=== PATIENT | female | born 1960 | race Caucasian/White ===

== ENCOUNTER 2016-09-11 06:33 | Outpatient (CLI) | payer OTHER ==
[~2016-09-11] VITALS: Ht 157.5 cm; Wt 90.5 kg
[~2016-09-11 06:33] MED LIST: GLUCOPHAGE500 MG PO; GLUCOTROL 5 MG T5 MG PO
[2016-09-11] MEDS ORDERED: PRAVACHOL20 MG PO (07:12)
[2016-09-11 07:22] VITALS: BP 159/72; Ht 157.5 cm; Wt 90.5 kg
--- NOTE | 2016-09-11 07:42 | NUR ---
#22 GUAGE IV STARTED IN RIGHT HAND AFTER SECOND ATTEMPT.
--- NOTE | 2016-09-11 12:23 | NUR ---
1000 IV DC WITH CATHER TIP INTACT
== END 2016-09-11 10:15 | disposition home or self-care (01) ==
LOC: D.OPS 06:33
DX: D69.6 Thrombocytopenia, unspecified (principal); D72.819 Decreased white blood cell count, unspecified; E11.9 Type 2 diabetes mellitus without complications; E78.5 Hyperlipidemia, unspecified

== ENCOUNTER → 2017-03-04 16:55 | Outpatient (CLI) | payer OTHER ==
[2016-09-11 07:22] VITALS: BMI 36.5
[~2017-03-04 16:55] MED LIST changes: +PRAVACHOL20 MG PO
== END | disposition home or self-care (01) ==
LOC: D.MAMMO 13:30
DX: R92.2 Inconclusive mammogram (principal)

== ENCOUNTER 2018-02-15 18:59 | Inpatient (IN) | payer OTHER ==
[~2018-02-15] VITALS: Ht 157.5 cm; Wt 67.3 kg
--- NOTE | ~2018-02-15 | HEMODYNAMI ---
PATIENT:KYLEE TREVINO MEDICAL RECORD: [id number] : 60 [facility] [id number] ADMISSION DATE: 02/16/18 Generatedon:02/21/20189:15 Patient name: KYLEE TREVINO Patient #: [id number] SSN: : 1960 Date of study: 02/21/2018 Page: Of Hemodynamic Procedure Report Patient Data Patient Demographics Procedure consent was obtained First Name: KYLEE Gender: Female Last Name: URIEL : 1960 Middle Initial: ERYES Age: 57 year(s) Patient #: [id number] Race: Unknown Additional ID: [id number] Contact details Address: [address] [place] [address] State: [place] City: [place] Zip code: [address] Past Medical History Allergies: No known allergies Admission Admission Data Admission Date: 02/16/2018 Admission Time: 1:07 Room #: D.2123 Height (in.): 62 BSA: 1.71 (m2) Height (cm.): 157.48 BMI: 28.17 (kg/m2) Weight (lbs.): 154 Weight (kg.): 69.85 Procedure Procedure Types Cath Procedure Peripheral Cath Diagnostic Procedure Miscellaneous Procedure Description Procedure Date Procedure Date: 02/21/2018 Procedure Start Time: 8:37 Procedure Staff Name Function Linda Munoz RT Reconciliation Analyst Vamshi Koch MD Performing Physician Amanda Jimenez RN Nurse Emma Benton RN Nurse Procedure Medications Medication Administration Route Dosage Lidocaine 1% added to field 20 Hemodynamics Rest BSA: 1.71 (m2) O2 Consumption: Estimated: 232.56 (ml/min) O2 Consumption indexed : Estimated:136 (ml/min/m) Snapshots Pre Cath Intra NCS Post Cath Vital Signs Time Heart Resp SPO2 etCO2 NIBP (mmHg) Rhythm Pain Sedation Rate (ipm) (%) (mmHg) Status Level (bpm) 8:25:45 93 30 100 0 133/84(107) NSR 0 (11) 10(A) , No pain 8:29:59 98 32 100 0 130/82(98) NSR 0 (11) 10(A) , No pain 8:34:12 98 30 100 0 125/81(104) NSR 0 (11) 10(A) , No pain 8:38:22 96 33 100 0 131/85(105) NSR 0 (11) 10(A) , No pain 8:42:32 98 28 99 0 120/80(105) NSR 0 (11) 10(A) , No pain 8:46:42 98 28 99 0 120/79(105) NSR 0 (11) 10(A) , No pain 8:50:52 98 29 98 0 123/76(96) NSR 0 (11) 10(A) , No pain 8:55:02 90 15 98 0 112/76(90) NSR 0 (11) 10(A) , No pain 8:59:12 86 15 98 0 106/66(88) NSR 0 (11) 10(A) , No pain 9:04:11 93 22 99 0 120/75(97) NSR 0 (11) 10(A) , No pain 9:08:21 93 18 100 0 121/75(101) NSR 0 (11) 10(A) , No pain 9:12:35 96 30 100 0 121/73(93) NSR 0 (11) 10(A) , No pain Medications Time Medication Route Dose Verified Delivered Reason Notes Effectivene ss by by 8:36:16 Lidocaine added 20ml Vamshi Bonds used for 1% to vial August Koch procedure field MD HALL Procedure Log Time Note 8:17:55 Patient Height : 62 inches 8:18:04 Patient Weight : 154 lbs 8:18:08 Time tracking: Regular hours (M-F 7:00 - 5:00) 8:18:50 Patient received from [employer] to IR Alert and oriented. Tansferred to table in Supine position. 8:18:55 Signed procedure consent form obtained from patient. 8:19:02 H&P Date Dictated: 02/21/2018 Emergent; H&P N/A. 8:19:10 Pre-op teaching completed and patient verbalized understanding. 8:19:10 Pre-procedure instructions explained to patient. 8:19:25 Family unavailable. 8::28 Patient NPO since Midnight. 8:19:38 Patient allergic to No known allergies 8:20:27 8:: ----Pre-sedation anethsthesia assessment.---- 8:20:32 Previous problem with sedation/anesthesia? No ? 8:21:35 Snore? No 8:21:40 Sleep apnea? No 8:21:42 Deviated septum? No 8:21:44 Opens mouth fully? Yes 8:21:46 Sticks out tongue? Yes 8:21:55 Airway obstruction? No but has CHF 8:22:01 Dentures? No ? 8:22:06 Patient diabetic? No. 8::22 IV patent on arrival in right wrist with D5/.45%NaCl at [facility]. 8:22:33 Right abdomen area was prepped with chlora-prep and draped in sterile fashion 8:22:35 8:24:39 ECG and BP/O2 sat monitors applied to patient. 8:24:41 Vital chart was started 8:24:42 Baseline sample Acquired. 8:24:44 Full Disclosure recording started 8:24:45 8:35:53 Physician arrived 8:36:16 Lidocaine 1% 20ml vial added to field was administered by Vamshi Koch MD; used for procedure; 8:36:24 --------ALL STOP TIME OUT------ 8:36:25 Final Timeout: patient, procedure, and site verified with staff and physician. All members of the team are in agreement. 8:37:13 Procedure started. 8:37:34 Local anesthetic to Abdominal area with Lidocaine 1% by Vamshi Koch MD.INITIAL ACCESS ONLY 9:10:49 [id number] 8FR CATH DRAIN TRAY opened to sterile field. 9:10:56 Tegaderm 4 x 4 (1626W) opened to sterile field. 9:11:11 7.5 LITERS DRAINED FROM ABDOMEN 9:12:18 Procedure ended.(Physican Out) 9:13:01 Full Disclosure recording stopped 9:14:38 Procedure and supply charges have been captured, reviewed, submitted and are correct. Device Usage Item Name Manufacture Quantity Catalog Hospital Part Current Minimal Lot# / Number Charge Number Stock Stock Serial# Code [id number] CareFusion 1 [id number] 5 8FR CATH DRAIN TRAY Tegaderm 4 x 4 3M 1 [id number] (1626W) Signature Audit Lester Stage Time Signature Unsigned Intra-Procedure 02/21/2018 Linda Munoz 9:14:52 AM RT(R) [facility] [address] [place] [address]
--- NOTE | ~2018-02-15 | EC ---
PATIENT:KYLEE TREVINO DATE OF SERVICE: 02/16/18 SEX: F MEDICAL RECORD: [id number] DATE OF : 60 LOCATION:D. D.212 AGE OF PATIENT: 57 ADMISSION DATE: 02/16/18 REFERRING PHYSICIAN: INTERPRETING PHYSICIAN: ZAINAB CHANEY MD ECHOCARDIOGRAM REPORT ECHO CHARGES 4 ECHO COMPLETE Date: 02/16 CLINICAL DIAGNOSIS: CHF ECHOCARDIOGRAPHIC MEASUREMENTS (adult normal given) AC root (d.<3.7cm) 3.2 cm LV Septum d (<1.2 cm> 1.2 cm Valve Excursion 2.0 cm LV Septum (systole) 1.6 cm Left Atria (s.<4.0cm> 3.9 cm LVPW d(<1.2cm) 1.2 cm RV (d.<2.3cm) 2.4 cm LVPW (sytole) 2.0 cm LV diastole(<5.6CM) 5.6 cm MV E-F(>70mm/sec) cm LV systole 3.1 cm LVOT Diameter 1.7 cm MV exc.(>10mm) cm Est.ejection fraction (50-75%) % DOPPLER: LVIT cm/sec A 124 cm/sec E 96.0 cm/sec LA cm/sec RVSP 38.0 mmHg LVOT 126 cm/sec AOP1/2T m/s Asc. Ao 168 cm/sec RVOT 68.0 cm/sec RA cm/sec PA 110 cm/sec AV Gradient Peak 11.3 mmHg AV Mean 4.7 mmHg AV Area 2.1 cm MV Gradient Peak 7.2 mmHg MV Mean 3.3 mmHg MV Area cm COMMENTS: Nutrition Internship: [employer] Visitor: 1 Dr. Chaney TAPE# PACS Pericardial Effusion N DATE OF SERVICE: 02/17/2018 PROCEDURE: Echocardiogram. FINDINGS: 1. Left ventricular chamber size is within normal limits. Left ventricular systolic function is normal. Overall ejection fraction estimated at 60%. 2. Left atrium, right atrium, and right ventricle chamber sizes are within normal limits. 3. Valvular structures have normal structure and motion. ECHOCARDIOGRAM REPORT [id number] KYLEE TREVINO 4. Doppler interrogation reveals mild mitral regurgitation, mild tricuspid regurgitation, no other valvular insufficiency or stenosis. 5. No evidence of pericardial effusion or left ventricular thrombus. TRANSINT:[id number] Voice Confirmation ID: [id number] DOCUMENT ID: [id number] ZAINAB CHANEY MD at 1325 CC: [id number] DICTATION DATE: 02/18/18 1054 SCIENTIFIC INFORMATICS ANALYST: 02/18/18 1125 DIS IN 02/22/18 [place] [id number] [place] [id number]
[2018-02-15] MEDS ORDERED: FUROSEMIDE40 MG PO (19:07)
[2018-02-15] MEDS ORDERED: ZESTORETIC 10/11 TAB PO (19:08)
[2018-02-15] MEDS ORDERED: K-DUR20 MEQ PO (19:09)
[2018-02-15 19:40] LABS: BASOPHILS 0.4 % (0-2); EOSINOPHILS 1.8 % (0-7); HEMATOCRIT 32.7 % (36.0-48.0); HEMOGLOBIN 11.2 g/dL (12-16); LYMPHOCYTES 13.4 % (15-50); MCH 31.7 pg (26.0-34.0); MCHC 34.3 g/dL (31.0-37.0); MCV 92.6 fL (80.0-100.0); MEAN PLATELET VOLUME 9.5 fL (7.4-10.4); MONOCYTES 8.8 % (2-11); NEUTROPHILS 75.6 % (40-80); RBC 3.53 10x6/uL (4.00-5.40); RDW 15.4 % (11.5-14.5); WBC 5.5 10x3/uL (4.8-10.8)
[2018-02-15 19:53] LABS: APTT 30.5 SECONDS (22.8-39.4); INR 1.39 (0.85-1.17); PROTIME 16.6 SECONDS (11.6-15.0)
[2018-02-15 19:58] LABS: ALBUMIN 2.6 g/dL (3.4-5.0); ALKALINE PHOSPHATASE 156 U/L (46-116); ALT (SGPT) 19 U/L (10-68); BILIRUBIN - TOTAL 1.01 mg/dL (0.2-1.3); CALC OSMOLALITY 287 mosm/kg (275-300); CALCIUM 8.6 mg/dL (8.5-10.1); CARBON DIOXIDE 21.9 mmol/L (21.0-32.0); CHLORIDE - SERUM 103 mmol/L (98-107); CREATININE - SERUM 4.8 mg/dL (0.6-1.3); GLUCOSE 155 mg/dL (74-106); POTASSIUM - SERUM 5.2 mmol/L (3.5-5.1); PROTEIN - SERUM 7.4 g/dL (6.4-8.2); SODIUM 138 mmol/L (136-145); UREA NITROGEN 37 mg/dL (7-18); eGFR NON AFRICAN AMERICAN 10 mL/min (90-120)
[2018-02-15 20:04] LABS: PLATELET COUNT 133 10x3/uL (130-400)
[2018-02-15 20:10] LABS: CKMB 1.5 U/L (0.0-3.6); CREATINE KINASE 168 UL (21-215); PRO BNP 975 pg/mL (0-125)
[2018-02-15 20:20] LABS: TROPONIN-I < 0.017 ng/mL (0.000-0.060)
[2018-02-15 21:01] VITALS: BP 121/83
[2018-02-15 22:58] VITALS: BP 122/83
[2018-02-15 23:40] LABS: COLOR YELLOW (YELLOW)
[2018-02-15 23:41] LABS: APPEARANCE HAZY (CLEAR); BILIRUBIN NEGATIVE (NEGATIVE); GLUCOSE NEGATIVE (NEGATIVE); KETONE NEGATIVE (NEGATIVE); NITRITE NEGATIVE (NEGATIVE); PROTEIN NEGATIVE (NEGATIVE); SPECIFIC GRAVITY 1.015 (1.005-1.020); UROBILINOGEN NORMAL (NORMAL)
[2018-02-15 23:42] LABS: BACTERIA MANY /hpf (NONE SEEN); EPITHELIAL CELLS 0-5 /hpf (0-5); RED CELLS - URINE 0-5 /hpf (0-5); WHITE CELLS - URINE 0-5 /hpf (0-5)
[2018-02-15 23:59] VITALS: BP 121/82
[2018-02-16] MEDS ORDERED: CHILDREN'S ASPI81 MG PO (02:35)
[2018-02-16 06:29] VITALS: BP 102/44; BMI 26.2
[2018-02-16 07:10] LABS: BASOPHILS 0.3 % (0-2); HEMATOCRIT 29.8 % (36.0-48.0); HEMOGLOBIN 10.2 g/dL (12-16); IMMATURE GRANULOCYTES 0.3 % (0-5); LYMPHOCYTES 21.3 % (15-50); MCH 31.7 pg (26.0-34.0); MCHC 34.2 g/dL (31.0-37.0); MCV 92.5 fL (80.0-100.0); MEAN PLATELET VOLUME 9.2 fL (7.4-10.4); MONOCYTES 8.8 % (2-11); NEUTROPHILS 65.3 % (40-80); RBC 3.22 10x6/uL (4.00-5.40); RDW 15.3 % (11.5-14.5)
[2018-02-16 07:14] LABS: PLATELET COUNT 80 10x3/uL (130-400); WBC 3.3 10x3/uL (4.8-10.8)
[2018-02-16 07:29] LABS: ANION GAP 16.8 mmol/L (8-16); CALCIUM 7.6 mg/dL (8.5-10.1); CARBON DIOXIDE 22.4 mmol/L (21.0-32.0); CREATININE - SERUM 4.6 mg/dL (0.6-1.3); MAGNESIUM - SERUM 1.3 mg/dL (1.8-2.4); POTASSIUM - SERUM 5.2 mmol/L (3.5-5.1)
[2018-02-16 07:56] LABS: PLATELET ESTIMATE DECREASED
[2018-02-16 08:10] VITALS: BP 138/74
[2018-02-16 11:02] VITALS: BP 141/71
[2018-02-16 11:45] LABS: % SATURATION 20 % (15-55); IRON 46 ug/dl (35-150); TOTAL IRON BIND CAPACITY 226 ug/dl (260-445); UNSAT IRON BIND CAPACITY 180 ug/dl (150-375)
[2018-02-16 12:01] LABS: FERRITIN 145 ng/mL (3-244); LIPASE 260 U/L (73-393)
[2018-02-16 12:43] VITALS: Ht 157.5 cm; Wt 67.3 kg
[2018-02-16 14:47] VITALS: BP 132/77
[2018-02-16 15:31] LABS: APPEARANCE CLEAR (CLEAR); BILIRUBIN NEGATIVE (NEGATIVE); COLOR YELLOW (YELLOW); GLUCOSE NEGATIVE (NEGATIVE); KETONE NEGATIVE (NEGATIVE); NITRITE NEGATIVE (NEGATIVE); PROTEIN NEGATIVE (NEGATIVE); UROBILINOGEN NORMAL (NORMAL)
[2018-02-16 15:33] LABS: BACTERIA MANY /hpf (NONE SEEN); EPITHELIAL CELLS 0-5 /hpf (0-5); RED CELLS - URINE 0-5 /hpf (0-5); WHITE CELLS - URINE 0-5 /hpf (0-5)
[2018-02-16 15:41] LABS: CREATININE - URINE 62.5 mg/dL (30-125); PROTEIN - URINE 50.5 mg/dL (0.0-11.9)
[2018-02-16 15:52] LABS: UDS - AMPHET NEGATIVE QUAL (NEGATIVE); UDS - BARB NEGATIVE QUAL (NEGATIVE); UDS - BENZO NEGATIVE QUAL (NEGATIVE); UDS - COCAINE NEGATIVE QUAL (NEGATIVE); UDS - OPIATE NEGATIVE QUAL (NEGATIVE); UDS - PCP NEGATIVE QUAL (NEGATIVE); UDS - THC NEGATIVE QUAL (NEGATIVE)
[2018-02-16 19:01] LABS: CREATININE - URINE 61.2 mg/dL (30-125); POTASSIUM - URINE 35.3 MMOL/L (12.0-62.0); PRO/CRE RATIO URINE 0.8 mg/g; PROTEIN - URINE 51.4 mg/dL (0.0-11.9)
[2018-02-16 20:56] VITALS: BP 101/59
[2018-02-17 00:46] VITALS: BP 133/80
[2018-02-17 05:03] VITALS: BP 104/50
[2018-02-17 05:26] LABS: BASOPHILS 0.6 % (0-2); EOSINOPHILS 2.8 % (0-7); HEMATOCRIT 28.6 % (36.0-48.0); HEMOGLOBIN 9.6 g/dL (12-16); LYMPHOCYTES 17.9 % (15-50); MCH 30.7 pg (26.0-34.0); MCHC 33.6 g/dL (31.0-37.0); MCV 91.4 fL (80.0-100.0); MEAN PLATELET VOLUME 9.5 fL (7.4-10.4); MONOCYTES 8.2 % (2-11); NEUTROPHILS 70.5 % (40-80); PLATELET COUNT 88 10x3/uL (130-400); RBC 3.13 10x6/uL (4.00-5.40); RDW 15.3 % (11.5-14.5); WBC 3.5 10x3/uL (4.8-10.8)
[2018-02-17 05:42] LABS: ALBUMIN 2.7 g/dL (3.4-5.0); BILIRUBIN - TOTAL 0.79 mg/dL (0.2-1.3); CALCIUM 7.6 mg/dL (8.5-10.1); CARBON DIOXIDE 24.9 mmol/L (21.0-32.0); PROTEIN - SERUM 6.2 g/dL (6.4-8.2)
[2018-02-17 05:43] LABS: ANION GAP 13.4 mmol/L (8-16); MAGNESIUM - SERUM 1.7 mg/dL (1.8-2.4); POTASSIUM - SERUM 4.3 mmol/L (3.5-5.1)
[2018-02-17 06:35] LABS: ERYTHROCYTE SEDIMENTATION RATE 31 mm/hr (0-30)
[2018-02-17 08:24] LABS: FOLATE (FOLIC ACID) - SERUM 6.4 ng/mL (>3.0)
[2018-02-17 09:19] LABS: HEPATITIS C ANTIBODY <0.1 (0.0-0.9)
[2018-02-17 21:35] VITALS: BP 114/49
[2018-02-18 05:05] VITALS: BP 95/50
[2018-02-18 05:57] LABS: ALBUMIN 2.5 g/dL (3.4-5.0); ANION GAP 12.2 mmol/L (8-16); BILIRUBIN - TOTAL 0.61 mg/dL (0.2-1.3); CALCIUM 7.8 mg/dL (8.5-10.1); CARBON DIOXIDE 25.2 mmol/L (21.0-32.0); MAGNESIUM - SERUM 1.9 mg/dL (1.8-2.4); PROTEIN - SERUM 6.4 g/dL (6.4-8.2)
[2018-02-18 05:59] LABS: CREATININE - SERUM 2.9 mg/dL (0.6-1.3); POTASSIUM - SERUM 3.4 mmol/L (3.5-5.1)
[2018-02-18 06:17] LABS: BASOPHILS 0.6 % (0-2); EOSINOPHILS 4.5 % (0-7); HEMATOCRIT 27.7 % (36.0-48.0); HEMOGLOBIN 9.4 g/dL (12-16); LYMPHOCYTES 18.2 % (15-50); MCH 30.9 pg (26.0-34.0); MCHC 33.9 g/dL (31.0-37.0); MCV 91.1 fL (80.0-100.0); MEAN PLATELET VOLUME 9.7 fL (7.4-10.4); MONOCYTES 10.2 % (2-11); NEUTROPHILS 66.5 % (40-80); PLATELET COUNT 92 10x3/uL (130-400); RBC 3.04 10x6/uL (4.00-5.40); WBC 3.5 10x3/uL (4.8-10.8)
[2018-02-18 08:16] VITALS: BP 115/51
[2018-02-18 11:14] VITALS: BP 110/55
[2018-02-18 15:29] VITALS: BP 113/61
[2018-02-18 18:09] LABS: SPE - A/G RATIO 0.9 (0.7-1.7); SPE - ALBUMIN 2.8 g/dL (2.9-4.4); SPE - ALPHA-1 GLOBULIN 0.3 g/dL (0.0-0.4); SPE - ALPHA-2 GLOBULIN 0.5 g/dL (0.4-1.0); SPE - GAMMA GLOBULIN 1.4 g/dL (0.4-1.8); SPE - M-SPIKE Not Observed g/dL (Not Observed)
[2018-02-18 19:09] LABS: UPE RAND - ALBUMIN 24.1 % (()); UPE RAND - ALPHA 1 GLOBULIN 2.5 % (()); UPE RAND - ALPHA 2 GLOBULIN 8.7 % (()); UPE RAND - BETA GLOBULIN 20.1 % (()); UPE RAND - GAMMA GLOBULIN 44.5 % (())
[2018-02-18 20:00] VITALS: BP 120/63
[2018-02-19 04:00] VITALS: BP 109/50
[2018-02-19 05:07] LABS: BASOPHILS 0.5 % (0-2); EOSINOPHILS 4.7 % (0-7); HEMOGLOBIN 9.1 g/dL (12-16); IMMATURE GRANULOCYTES 0.2 % (0-5); LYMPHOCYTES 20.9 % (15-50); MCH 31.1 pg (26.0-34.0); MCHC 33.7 g/dL (31.0-37.0); MCV 92.2 fL (80.0-100.0); MEAN PLATELET VOLUME 9.4 fL (7.4-10.4); MONOCYTES 6.4 % (2-11); NEUTROPHILS 67.3 % (40-80); PLATELET COUNT 97 10x3/uL (130-400); RBC 2.93 10x6/uL (4.00-5.40); RDW 14.8 % (11.5-14.5); WBC 4.1 10x3/uL (4.8-10.8)
[2018-02-19 05:28] LABS: INR 1.57 (0.85-1.17); PROTIME 18.3 SECONDS (11.6-15.0)
[2018-02-19 05:40] LABS: ALBUMIN 3.2 g/dL (3.4-5.0); ANION GAP 13.1 mmol/L (8-16); BILIRUBIN - TOTAL 0.65 mg/dL (0.2-1.3); CALCIUM 7.9 mg/dL (8.5-10.1); CARBON DIOXIDE 24.5 mmol/L (21.0-32.0); CREATININE - SERUM 1.8 mg/dL (0.6-1.3); MAGNESIUM - SERUM 1.8 mg/dL (1.8-2.4); POTASSIUM - SERUM 3.6 mmol/L (3.5-5.1); PROTEIN - SERUM 6.6 g/dL (6.4-8.2)
[2018-02-19 09:13] VITALS: BP 114/66
[2018-02-19 12:34] VITALS: BP 119/74
[2018-02-19 16:38] VITALS: BP 145/89
[2018-02-19 20:30] VITALS: BP 141/78
[2018-02-20 04:30] VITALS: BP 117/51
[2018-02-20 06:25] LABS: INR 1.59 (0.85-1.17); PROTIME 18.4 SECONDS (11.6-15.0)
[2018-02-20 06:37] LABS: ALBUMIN 2.8 g/dL (3.4-5.0); ANION GAP 10.9 mmol/L (8-16); BILIRUBIN - TOTAL 0.66 mg/dL (0.2-1.3); CALCIUM 7.9 mg/dL (8.5-10.1); CARBON DIOXIDE 26.4 mmol/L (21.0-32.0); MAGNESIUM - SERUM 1.6 mg/dL (1.8-2.4); POTASSIUM - SERUM 3.3 mmol/L (3.5-5.1); PROTEIN - SERUM 6.1 g/dL (6.4-8.2)
[2018-02-20 06:38] LABS: CREATININE - SERUM 1.2 mg/dL (0.6-1.3)
[2018-02-20 06:49] LABS: HEMATOCRIT 25.8 % (36.0-48.0); HEMOGLOBIN 8.6 g/dL (12-16); MCH 30.8 pg (26.0-34.0); MCHC 33.3 g/dL (31.0-37.0); MCV 92.5 fL (80.0-100.0); MEAN PLATELET VOLUME 9.8 fL (7.4-10.4); PLATELET COUNT 83 10x3/uL (130-400); RBC 2.79 10x6/uL (4.00-5.40); RDW 14.9 % (11.5-14.5); WBC 2.9 10x3/uL (4.8-10.8)
[2018-02-20 07:26] LABS: BASOPHILS 1 % (0-2); EOSINOPHILS 2 % (0-7); LYMPHOCYTES 16 % (15-50); MONOCYTES 7 % (2-11); NEUTROPHILS 74 % (40-80); PLATELET ESTIMATE DECREASED
[2018-02-20 08:57] VITALS: BP 133/72
[2018-02-20 12:33] VITALS: BP 152/85
[2018-02-20 16:08] VITALS: BP 129/65
[2018-02-20 20:00] VITALS: BP 147/92
[2018-02-21] VITALS (10 sets, daily range): BP systolic 111–136; BP diastolic 57–80
[2018-02-21 04:14] LABS: BASOPHILS 0.4 % (0-2); HEMATOCRIT 26.6 % (36.0-48.0); HEMOGLOBIN 8.7 g/dL (12-16); MCH 30.5 pg (26.0-34.0); MCHC 32.7 g/dL (31.0-37.0); MCV 93.3 fL (80.0-100.0); MEAN PLATELET VOLUME 9.5 fL (7.4-10.4); MONOCYTES 12.1 % (2-11); NEUTROPHILS 62.5 % (40-80); PLATELET COUNT 73 10x3/uL (130-400); RBC 2.85 10x6/uL (4.00-5.40); RDW 14.8 % (11.5-14.5); WBC 2.6 10x3/uL (4.8-10.8)
[2018-02-21 04:26] LABS: INR 1.59 (0.85-1.17); PROTIME 18.4 SECONDS (11.6-15.0)
[2018-02-21 04:28] LABS: ALBUMIN 2.7 g/dL (3.4-5.0); ANION GAP 7.5 mmol/L (8-16); BILIRUBIN - TOTAL 0.56 mg/dL (0.2-1.3); CALCIUM 8.3 mg/dL (8.5-10.1); CREATININE - SERUM 0.9 mg/dL (0.6-1.3); MAGNESIUM - SERUM 1.8 mg/dL (1.8-2.4); POTASSIUM - SERUM 3.5 mmol/L (3.5-5.1); PROTEIN - SERUM 6.1 g/dL (6.4-8.2)
[2018-02-21 09:52] LABS: PROTEIN - BODY FLUID 1.5 G/DL
[2018-02-21 11:41] LABS: MACROPHAGES BF 29 %; MESOTHELIALS BF 5 %; NEUT - BF 11 %
[2018-02-22 06:57] VITALS: BP 139/76
[2018-02-22 08:03] VITALS: BP 126/71
[2018-02-22 09:14] LABS: BASOPHILS 0.6 % (0-2); EOSINOPHILS 5.6 % (0-7); HEMATOCRIT 28.9 % (36.0-48.0); HEMOGLOBIN 9.7 g/dL (12-16); IMMATURE GRANULOCYTES 0.3 % (0-5); LYMPHOCYTES 14.2 % (15-50); MCH 31.1 pg (26.0-34.0); MCHC 33.6 g/dL (31.0-37.0); MCV 92.6 fL (80.0-100.0); MEAN PLATELET VOLUME 9.7 fL (7.4-10.4); MONOCYTES 9.5 % (2-11); NEUTROPHILS 69.8 % (40-80); PLATELET COUNT 80 10x3/uL (130-400); RBC 3.12 10x6/uL (4.00-5.40); RDW 14.6 % (11.5-14.5)
[2018-02-22 09:15] LABS: WBC 3.4 10x3/uL (4.8-10.8)
[2018-02-22 09:32] LABS: ANION GAP 9.6 mmol/L (8-16); BILIRUBIN - TOTAL 0.95 mg/dL (0.2-1.3); CALCIUM 8.1 mg/dL (8.5-10.1); CARBON DIOXIDE 25.3 mmol/L (21.0-32.0); CREATININE - SERUM 1.1 mg/dL (0.6-1.3); POTASSIUM - SERUM 3.9 mmol/L (3.5-5.1); PROTEIN - SERUM 6.2 g/dL (6.4-8.2)
[2018-02-22 11:20] VITALS: BP 132/78
[2018-02-22] MEDS ORDERED: CHRONULAC30 ML PO (15:04)
[2018-02-22] MEDS ORDERED: ALDACTONE25 MG PO (15:09)
== END 2018-02-22 17:49 | disposition home or self-care (01) | DRG 432 ==
LOC: D.ER 18:59 → D.EDHOLD 02-16 01:07 → D.M2 02-16 01:07 → D.SDCHOLD 02-17 15:56 → D.M2 02-22 17:49
PROVIDERS: Family Medicine; Internal Medicine; Internal Medicine Gastroenterology; Internal Medicine Nephrology; Radiology Diagnostic Radiology
PROC: 0W9G3ZZ Drainage of Peritoneal Cavity, Percutaneous Approach (ICD-10-PCS; principal; 2018-02-21 08:30)
DX: K70.31 Alcoholic cirrhosis of liver with ascites (principal); I50.23 Acute on chronic systolic (congestive) heart failure; N17.9 Acute kidney failure, unspecified; D61.818 Other pancytopenia; N39.0 Urinary tract infection, site not specified; E11.9 Type 2 diabetes mellitus without complications; K21.9 Gastro-esophageal reflux disease without esophagitis; E87.5 Hyperkalemia; D69.6 Thrombocytopenia, unspecified; E83.42 Hypomagnesemia; D50.9 Iron deficiency anemia, unspecified; E78.5 Hyperlipidemia, unspecified; B96.20 Unspecified Escherichia coli [E. coli] as the cause of diseases classified elsewhere; R68.81 Early satiety

== ENCOUNTER 2018-04-17 16:56 | Inpatient (IN) | payer OTHER ==
[~2018-04-17] VITALS: Ht 157.5 cm; Wt 64.4 kg
[~2018-04-17 16:56] MED LIST changes: +ALDACTONE25 MG PO; +CHILDREN'S ASPI81 MG PO; +CHRONULAC30 ML PO; +FUROSEMIDE40 MG PO; +K-DUR20 MEQ PO; +ZESTORETIC 10/11 TAB PO
[2018-04-17 18:53] LABS: BASOPHILS 0.2 % (0-2); EOSINOPHILS 2.3 % (0-7); HEMATOCRIT 32.6 % (36.0-48.0); HEMOGLOBIN 10.8 g/dL (12-16); LYMPHOCYTES 15.2 % (15-50); MCH 29.1 pg (26.0-34.0); MCHC 33.1 g/dL (31.0-37.0); MCV 87.9 fL (80.0-100.0); MONOCYTES 6.5 % (2-11); NEUTROPHILS 75.8 % (40-80); RBC 3.71 10x6/uL (4.00-5.40); RDW 13.5 % (11.5-14.5); WBC 4.3 10x3/uL (4.8-10.8)
[2018-04-17 19:00] LABS: PLATELET COUNT 104 10x3/uL (130-400)
[2018-04-17 19:08] VITALS: BP 119/67
[2018-04-17 19:09] LABS: ALBUMIN 2.7 g/dL (3.4-5.0); ALKALINE PHOSPHATASE 78 U/L (46-116); ALT (SGPT) 17 U/L (10-68); BILIRUBIN - TOTAL 0.76 mg/dL (0.2-1.3); CALC OSMOLALITY 285 mosm/kg (275-300); CALCIUM 8.3 mg/dL (8.5-10.1); CARBON DIOXIDE 28.3 mmol/L (21.0-32.0); CHLORIDE - SERUM 104 mmol/L (98-107); CREATININE - SERUM 0.8 mg/dL (0.6-1.3); POTASSIUM - SERUM 3.5 mmol/L (3.5-5.1); PROTEIN - SERUM 7.1 g/dL (6.4-8.2); SODIUM 143 mmol/L (136-145); UREA NITROGEN 11 mg/dL (7-18); eGFR NON AFRICAN AMERICAN 78 mL/min (90-120)
[2018-04-17 19:15] LABS: GLUCOSE 134 mg/dL (74-106)
[2018-04-17 19:18] LABS: PRO BNP 211 pg/mL (0-125); THYROID STIMULATING HORMONE 3.59 uIU/mL (0.36-3.74)
[2018-04-17 19:39] LABS: CKMB 0.6 U/L (0.0-3.6); CREATINE KINASE 62 UL (21-215)
[2018-04-17 19:43] LABS: TROPONIN-I < 0.017 ng/mL (0.000-0.060)
[2018-04-17 20:08] VITALS: BP 126/65
[2018-04-17 21:21] VITALS: BP 121/62
[2018-04-17] MEDS ORDERED: CHRONULAC30 ML PO (23:36)
[2018-04-17] MEDS ORDERED: GLUCOPHAGE500 MG PO (23:37)
[2018-04-17] MEDS ORDERED: ASPIRIN EC81 M1 PO (23:37)
[2018-04-18 00:01] VITALS: BP 126/57; BMI 28.2
[2018-04-18 05:15] VITALS: BP 168/68
[2018-04-18 08:49] VITALS: BP 107/69
[2018-04-18 10:30] LABS: APTT 23.3 SECONDS (22.8-39.4); INR 1.48 (0.85-1.17); PROTIME 17.4 SECONDS (11.6-15.0)
[2018-04-18 10:45] LABS: BASOPHILS 0.5 % (0-2); EOSINOPHILS 2.5 % (0-7); HEMATOCRIT 33.9 % (36.0-48.0); HEMOGLOBIN 11.2 g/dL (12-16); LYMPHOCYTES 14.3 % (15-50); MCH 29.1 pg (26.0-34.0); MCV 88.1 fL (80.0-100.0); MEAN PLATELET VOLUME 9.4 fL (7.4-10.4); MONOCYTES 8.5 % (2-11); NEUTROPHILS 74.2 % (40-80); PLATELET COUNT 116 10x3/uL (130-400); RBC 3.85 10x6/uL (4.00-5.40); RDW 13.4 % (11.5-14.5); WBC 4.3 10x3/uL (4.8-10.8)
[2018-04-18 11:01] LABS: ALBUMIN 2.9 g/dL (3.4-5.0); ANION GAP 10.3 mmol/L (8-16); BILIRUBIN - TOTAL 0.94 mg/dL (0.2-1.3); CALCIUM 8.5 mg/dL (8.5-10.1); CARBON DIOXIDE 30.4 mmol/L (21.0-32.0); CREATININE - SERUM 0.9 mg/dL (0.6-1.3); POTASSIUM - SERUM 3.7 mmol/L (3.5-5.1); PROTEIN - SERUM 7.3 g/dL (6.4-8.2)
[2018-04-18 14:46] VITALS: Ht 157.5 cm; Wt 64.4 kg
[2018-04-18 16:19] VITALS: BP 101/63
[2018-04-18 20:00] VITALS: BP 101/48
[2018-04-19 04:42] VITALS: BP 97/45
[2018-04-19 07:32] LABS: HEMATOCRIT 28.8 % (36.0-48.0); HEMOGLOBIN 9.3 g/dL (12-16); MCH 28.2 pg (26.0-34.0); MCHC 32.3 g/dL (31.0-37.0); MCV 87.3 fL (80.0-100.0); MEAN PLATELET VOLUME 9.8 fL (7.4-10.4); RDW 13.2 % (11.5-14.5)
[2018-04-19 07:33] LABS: PLATELET COUNT 78 10x3/uL (130-400); WBC 2.6 10x3/uL (4.8-10.8)
[2018-04-19 07:44] LABS: ALBUMIN 2.5 g/dL (3.4-5.0); ALKALINE PHOSPHATASE 54 U/L (46-116); BILIRUBIN - TOTAL 0.83 mg/dL (0.2-1.3); CALC OSMOLALITY 276 mosm/kg (275-300); CALCIUM 7.9 mg/dL (8.5-10.1); CARBON DIOXIDE 27.2 mmol/L (21.0-32.0); CHLORIDE - SERUM 105 mmol/L (98-107); CREATININE - SERUM 0.8 mg/dL (0.6-1.3); GLUCOSE 141 mg/dL (74-106); PROTEIN - SERUM 5.6 g/dL (6.4-8.2); SODIUM 138 mmol/L (136-145); UREA NITROGEN 11 mg/dL (7-18); eGFR NON AFRICAN AMERICAN 78 mL/min (90-120)
[2018-04-19 07:48] LABS: ALT (SGPT) 13 U/L (10-68); POTASSIUM - SERUM 3.1 mmol/L (3.5-5.1)
[2018-04-19 08:15] LABS: EOSINOPHILS 1 % (0-7); LYMPHOCYTES 10 % (15-50); MONOCYTES 4 % (2-11); NEUTROPHILS 85 % (40-80); PLATELET ESTIMATE DECREASED
[2018-04-19 08:16] LABS: ELLIPTOCYTES 2+; POIKILOCYTOSIS 2+
[2018-04-19 08:26] VITALS: BP 90/49
[2018-04-19 12:42] VITALS: BP 111/56
[2018-04-19 16:35] VITALS: BP 95/43
[2018-04-19 22:27] VITALS: BP 100/49
[2018-04-20 05:08] VITALS: BP 125/47
[2018-04-20 07:13] LABS: BASOPHILS 0 % (0-2); EOSINOPHILS 3.4 % (0-7); HEMATOCRIT 28.4 % (36.0-48.0); HEMOGLOBIN 9.5 g/dL (12-16); LYMPHOCYTES 15.3 % (15-50); MCH 28.9 pg (26.0-34.0); MCHC 33.5 g/dL (31.0-37.0); MCV 86.3 fL (80.0-100.0); MEAN PLATELET VOLUME 9.9 fL (7.4-10.4); MONOCYTES 10.4 % (2-11); NEUTROPHILS 70.9 % (40-80); PLATELET COUNT 81 10x3/uL (130-400); RBC 3.29 10x6/uL (4.00-5.40); RDW 13.3 % (11.5-14.5)
[2018-04-20 07:19] LABS: WBC 3.3 10x3/uL (4.8-10.8)
[2018-04-20 07:36] LABS: ALBUMIN 2.3 g/dL (3.4-5.0); ALKALINE PHOSPHATASE 49 U/L (46-116); ALT (SGPT) 16 U/L (10-68); BILIRUBIN - TOTAL 0.71 mg/dL (0.2-1.3); CALC OSMOLALITY 279 mosm/kg (275-300); CARBON DIOXIDE 25.4 mmol/L (21.0-32.0); CHLORIDE - SERUM 106 mmol/L (98-107); CREATININE - SERUM 0.7 mg/dL (0.6-1.3); GLUCOSE 143 mg/dL (74-106); MAGNESIUM - SERUM 1.5 mg/dL (1.8-2.4); PROTEIN - SERUM 5.7 g/dL (6.4-8.2); SODIUM 140 mmol/L (136-145); UREA NITROGEN 9 mg/dL (7-18); eGFR NON AFRICAN AMERICAN > 90 mL/min (90-120)
[2018-04-20 07:46] LABS: POTASSIUM - SERUM 3.7 mmol/L (3.5-5.1)
[2018-04-20 08:43] VITALS: BP 99/59
[2018-04-20 12:40] VITALS: BP 133/77
[2018-04-20 16:46] VITALS: BP 128/72
[2018-04-20 20:00] VITALS: BP 108/51
[2018-04-21 04:30] VITALS: BP 95/43
[2018-04-21 05:56] LABS: BASOPHILS 0.5 % (0-2); EOSINOPHILS 4.6 % (0-7); HEMATOCRIT 29.2 % (36.0-48.0); HEMOGLOBIN 9.7 g/dL (12-16); LYMPHOCYTES 14.2 % (15-50); MCH 28.8 pg (26.0-34.0); MCHC 33.2 g/dL (31.0-37.0); MCV 86.6 fL (80.0-100.0); MEAN PLATELET VOLUME 9.8 fL (7.4-10.4); MONOCYTES 10.6 % (2-11); NEUTROPHILS 70.1 % (40-80); PLATELET COUNT 93 10x3/uL (130-400); RBC 3.37 10x6/uL (4.00-5.40); RDW 13.3 % (11.5-14.5); WBC 3.7 10x3/uL (4.8-10.8)
[2018-04-21 06:18] LABS: APTT 31.2 SECONDS (22.8-39.4)
[2018-04-21 06:22] LABS: ALBUMIN 2.4 g/dL (3.4-5.0); ANION GAP 10.3 mmol/L (8-16); BILIRUBIN - DIRECT 0.2 mg/dL (0.00-0.30); BILIRUBIN - INDIRECT 0.37 mg/dL (0.00-1.00); BILIRUBIN - TOTAL 0.57 mg/dL (0.2-1.3); CALCIUM 8.1 mg/dL (8.5-10.1); CARBON DIOXIDE 26.3 mmol/L (21.0-32.0); INR 1.48 (0.85-1.17); POTASSIUM - SERUM 3.6 mmol/L (3.5-5.1); PROTEIN - SERUM 5.9 g/dL (6.4-8.2); PROTIME 17.4 SECONDS (11.6-15.0)
[2018-04-21 06:23] LABS: CREATININE - SERUM 0.9 mg/dL (0.6-1.3)
[2018-04-21 09:10] VITALS: BP 106/43
[2018-04-21] MEDS ORDERED: ALDACTONE25 MG PO (11:31)
[2018-04-21] MEDS ORDERED: CHRONULAC30 ML PO (11:32)
== END 2018-04-21 16:32 | disposition home or self-care (01) | DRG 433 ==
LOC: D.ER 16:56 → D.EDHOLD 22:17 → OBSVTIME 22:17 → D.EDHOLD 22:17 → D.MS 22:17 → D.M2 23:00 → D.MS 23:22
PROVIDERS: Family Medicine; Radiology Diagnostic Radiology; Specialist
PROC: 0W9G3ZZ Drainage of Peritoneal Cavity, Percutaneous Approach (ICD-10-PCS; principal; 2018-04-18 11:55)
DX: K70.31 Alcoholic cirrhosis of liver with ascites (principal); N17.9 Acute kidney failure, unspecified; D61.818 Other pancytopenia; K72.90 Hepatic failure, unspecified without coma; R16.1 Splenomegaly, not elsewhere classified; E11.9 Type 2 diabetes mellitus without complications; I50.9 Heart failure, unspecified

== ENCOUNTER 2018-05-23 16:02 | Inpatient (IN) | payer OTHER ==
[~2018-05-23] VITALS: Ht 157.5 cm; Wt 64.1 kg
--- NOTE | ~2018-05-23 | MORECARE ---
CASE MANAGEMENT DISCHARGE SUMMARY PATIENT: KYLEE TREVINO UNIT: [id number] ADM DATE: 05/25/18 AGE: 57 : 60 SEX: F ROOM/BED: D.1208 AUTHOR: NETODOC PHYSICIAN: REFERRING PHYSICIAN: VIDA HAUSER MD DATE OF SERVICE: 05/25/18 Discharge Plan Patient Name: KYLEE TREVINO Facility: [facility]:[place] : 1960 Planned Disposition: Home or Self Care Anticipated Discharge Date: Discharge Date: Expected LOS: Initial Reviewer: [email or web address] Initial Review Date: 05/25/2018 Generated: 05/25/18 9:27 pm Comments DCP- Discharge Planning Updated by [email or web address]: Kassie Sosa on 05/25/18 7:[address] Late Entry 05/25/18 @ 1345 Patient Name: KYLEE TREVINO Admission Status: ER Accout number: [id number] Admission Date: 05-25-2018 : 1960 Admission Diagnosis: Attending: VIDA HAUSER Current LOS: 1 Anticipated DC Date: Planned Disposition: Home or Self Care Primary Insurance: [employer] MANAGED MEDICAID Discharge Planning Comments: CM met with patient at bedside after obtaining verbal consent. Patient states she plans on returning home after discharge with her uncle. Patient states she will have family transport her home via private vehicle. Patient states that she is trying to get her disability and has been awaiting on records from the hospital. CM checked on this. Health information is working on it to send to social security. Patient denies any discharge needs at this time. CM will continue to follow and assist as needed for discharge planning / needs. Doorperson Or Luggage Porter: Kassie Sosa DCPIA - Discharge Planning Initial Assessment Updated by [email or web address]: Kassie Sosa on 05/25/18 7:49 pm * Is the patient Alert and Oriented? Yes * How many steps to enter\exit or inside your home? * PCP Dr. Acevedo * Pharmacy [facility] * Preadmission Environment Home with Family * ADLs Independent * Equipment None * List name and contact numbers for known caregivers / representatives who currently or will assist patient after discharge: Jeannette Hernandez - [phone] Marie Delaney [phone] * Verbal permission to speak to the caregivers and representatives has been obtained from the patient. N/A * Community resources currently utilized None * Additional services required to return to the preadmission environment? No * Can the patient safely return to the preadmission environment? Yes * Has this patient been hospitalized within the prior 30 days at any hospital? Yes Last DP export: 05/25/18 6:50 Patient Name: KYLEE TREVINO Page 77201 at 2026 All edits/amendments must be made on the electronic document DICTATION DATE: 05/25/182025 ENGRAVER WOOD: BRIANNA 05/25/182025 RPT#: [id number] DC DATE: STATUS: ADM IN [facility] [address] [place] [address] END OF REPORT
--- NOTE | ~2018-05-23 | MORECARE ---
CASE MANAGEMENT DISCHARGE SUMMARY PATIENT: KYLEE TREVINO UNIT: [id number] ADM DATE: 05/25/18 AGE: 57 : 60 SEX: F ROOM/BED: D.1208 AUTHOR: NETO,DOC PHYSICIAN: REFERRING PHYSICIAN: VIDA HAUSER MD DATE OF SERVICE: 05/26/18 Discharge Plan Patient Name: KYLEE TREVINO Facility: [facility]:[place] : 1960 Planned Disposition: Home or Self Care Anticipated Discharge Date: Discharge Date: 05/26/2018 Expected LOS: Initial Reviewer: [email or web address] Initial Review Date: 05/25/2018 Generated: 05/26/18 8:03 pm Comments DCP- Discharge Planning Updated by [email or web address]: Kassie Sosa on 05/25/18 7:[address] Late Entry 05/25/18 @ 1345 Patient Name: KYLEE TREVINO Admission Status: ER Accout number: [id number] Admission Date: 05-25-2018 : 1960 Admission Diagnosis: Attending: VIDA HAUSER Current LOS: 1 Anticipated DC Date: Planned Disposition: Home or Self Care Primary Insurance: [employer] MANAGED MEDICAID Discharge Planning Comments: CM met with patient at bedside after obtaining verbal consent. Patient states she plans on returning home after discharge with her uncle. Patient states she will have family transport her home via private vehicle. Patient states that she is trying to get her disability and has been awaiting on records from the hospital. CM checked on this. Health information is working on it to send to social security. Patient denies any discharge needs at this time. CM will continue to follow and assist as needed for discharge planning / needs. Customer Training Specialist: Kassie Sosa DCPIA - Discharge Planning Initial Assessment Updated by [email or web address]: Kassie Sosa on 05/25/18 7:49 pm * Is the patient Alert and Oriented? Yes * How many steps to enter\exit or inside your home? * PCP Dr. Acevedo * Pharmacy [facility] * Preadmission Environment Home with Family * ADLs Independent * Equipment None * List name and contact numbers for known caregivers / representatives who currently or will assist patient after discharge: Jeannette Hernandez [phone] Marie Delaney [phone] * Verbal permission to speak to the caregivers and representatives has been obtained from the patient. N/A * Community resources currently utilized None * Additional services required to return to the preadmission environment? No * Can the patient safely return to the preadmission environment? Yes * Has this patient been hospitalized within the prior 30 days at any hospital? Yes Last DP export: 05/25/18 7:27 Patient Name: KYLEE TREVINO Page 12804 at 1903 All edits/amendments must be made on the electronic document DICTATION DATE: 05/26/181902 MOLD BUNCH TRIMMER: BRIANNA 05/26/181902 RPT#: [id number] DC DATE:05/26/18 STATUS: DIS IN [facility] [address] [place] [address] END OF REPORT
--- NOTE | ~2018-05-23 | MORECARE ---
CASE MANAGEMENT DISCHARGE SUMMARY PATIENT: KYLEE TREVINO UNIT: [id number] ADM DATE: 05/25/18 AGE: 57 : 60 SEX: F ROOM/BED: D.1208 AUTHOR: CARLENE DUQUE PHYSICIAN: REFERRING PHYSICIAN: VIDA HAUSER MD DATE OF SERVICE: 05/25/18 Discharge Plan Patient Name: KYLEE TREVINO [facility] [facility] 1960 Planned Disposition: Home or Self Care Anticipated Discharge Date: Discharge Date: Expected LOS: Initial Reviewer: [email or web address] Initial Review Date: 05/25/2018 Generated: 05/25/18 8:50 pm DCPIA - Discharge Planning Initial Assessment Updated by [email or web address]: Kassie Sosa on 05/25/18 7:49 pm * Is the patient Alert and Oriented? Yes * How many steps to enter\exit or inside your home? * PCP Dr. Acevedo * Pharmacy [place] * Preadmission Environment Home with Family * ADLs Independent * Equipment None * List name and contact numbers for known caregivers / representatives who currently or will assist patient after discharge: Jeannette David [phone] Marie Delaney [phone] * Verbal permission to speak to the caregivers and representatives has been obtained from the patient. N/A * Community resources currently utilized None * Additional services required to return to the preadmission environment? No * Can the patient safely return to the preadmission environment? Yes * Has this patient been hospitalized within the prior 30 days at any hospital? Yes Patient Name: KYLEE TREVINO Page 74174 at 1950 All edits/amendments must be made on the electronic document DICTATION DATE: 05/25/181949 YARD CRANE OPERATOR: BRIANNA 05/25/181949 RPT#: [id number] DC DATE: STATUS: ADM IN [facility] [address] [place] [address] END OF REPORT
[~2018-05-23 16:02] MED LIST changes: +ASPIRIN EC81 M1 PO
[2018-05-23 16:33] LABS: APPEARANCE HAZY (CLEAR); BILIRUBIN NEGATIVE (NEGATIVE); COLOR YELLOW (YELLOW); GLUCOSE 100 mg/dL (NEGATIVE); KETONE NEGATIVE (NEGATIVE); NITRITE NEGATIVE (NEGATIVE); PROTEIN NEGATIVE (NEGATIVE); SPECIFIC GRAVITY 1.025 (1.005-1.020); UROBILINOGEN NORMAL (NORMAL)
[2018-05-23 16:34] LABS: BACTERIA MODERATE /hpf (NONE SEEN); EPITHELIAL CELLS 0-5 /hpf (0-5); RED CELLS - URINE 0-5 /hpf (0-5); WHITE CELLS - URINE 0-5 /hpf (0-5)
[2018-05-23 16:36] LABS: BASOPHILS 0.5 % (0-2); EOSINOPHILS 1.8 % (0-7); HEMATOCRIT 35.1 % (36.0-48.0); HEMOGLOBIN 11.7 g/dL (12-16); IMMATURE GRANULOCYTES 0.3 % (0-5); LYMPHOCYTES 13.6 % (15-50); MCHC 33.3 g/dL (31.0-37.0); MEAN PLATELET VOLUME 9.5 fL (7.4-10.4); MONOCYTES 8.9 % (2-11); NEUTROPHILS 74.9 % (40-80); RBC 4.18 10x6/uL (4.00-5.40); RDW 14.6 % (11.5-14.5); WBC 3.8 10x3/uL (4.8-10.8)
[2018-05-23 16:38] LABS: PLATELET COUNT 119 10x3/uL (130-400)
[2018-05-23 16:57] LABS: ALBUMIN 2.8 g/dL (3.4-5.0); ANION GAP 15.7 mmol/L (8-16); BILIRUBIN - TOTAL 1.05 mg/dL (0.2-1.3); CALCIUM 8.8 mg/dL (8.5-10.1); CARBON DIOXIDE 25.2 mmol/L (21.0-32.0); PROTEIN - SERUM 7.5 g/dL (6.4-8.2)
[2018-05-23 17:03] LABS: POTASSIUM - SERUM 2.9 mmol/L (3.5-5.1)
[2018-05-24] VITALS (7 sets, daily range): BP systolic 103–157; BP diastolic 49–71; Ht 157.5 cm; Wt 64.1 kg
[2018-05-24] MEDS ORDERED: GLUCOPHAGE1000 MG PO (01:33)
[2018-05-24 05:14] LABS: HEMATOCRIT 28.8 % (36.0-48.0); HEMOGLOBIN 9.5 g/dL (12-16); MCH 27.6 pg (26.0-34.0); MCV 83.7 fL (80.0-100.0); MEAN PLATELET VOLUME 9.6 fL (7.4-10.4); RBC 3.44 10x6/uL (4.00-5.40); RDW 14.5 % (11.5-14.5)
[2018-05-24 05:19] LABS: INR 1.59 (0.85-1.17); PROTIME 18.5 SECONDS (11.6-15.0)
[2018-05-24 05:25] LABS: ALBUMIN 2.2 g/dL (3.4-5.0); ALKALINE PHOSPHATASE 60 U/L (46-116); BILIRUBIN - TOTAL 0.65 mg/dL (0.2-1.3); CALCIUM 8.1 mg/dL (8.5-10.1); CARBON DIOXIDE 28.9 mmol/L (21.0-32.0); CHLORIDE - SERUM 105 mmol/L (98-107); SODIUM 142 mmol/L (136-145); UREA NITROGEN 9 mg/dL (7-18)
[2018-05-24 05:26] LABS: PLATELET COUNT 91 10x3/uL (130-400); WBC 2.8 10x3/uL (4.8-10.8)
[2018-05-24 05:28] LABS: ALT (SGPT) 14 U/L (10-68); CALC OSMOLALITY 283 mosm/kg (275-300); CREATININE - SERUM 0.7 mg/dL (0.6-1.3); GLUCOSE 128 mg/dL (74-106); POTASSIUM - SERUM 3.6 mmol/L (3.5-5.1); eGFR NON AFRICAN AMERICAN > 90 mL/min (90-120)
[2018-05-24 05:51] LABS: LYMPHOCYTES 12 % (15-50); MICROCYTOSIS 2+; MONOCYTES 8 % (2-11); NEUTROPHILS 80 % (40-80); PLATELET ESTIMATE DECREASED
[2018-05-24 05:52] LABS: ELLIPTOCYTES 1+
[2018-05-25 04:58] VITALS: BP 96/54
[2018-05-25 05:47] LABS: BASOPHILS 0.2 % (0-2); EOSINOPHILS 2.8 % (0-7); HEMATOCRIT 32.2 % (36.0-48.0); HEMOGLOBIN 10.6 g/dL (12-16); IMMATURE GRANULOCYTES 0.2 % (0-5); LYMPHOCYTES 12.1 % (15-50); MCH 27.9 pg (26.0-34.0); MCHC 32.9 g/dL (31.0-37.0); MCV 84.7 fL (80.0-100.0); MEAN PLATELET VOLUME 9.6 fL (7.4-10.4); MONOCYTES 8.1 % (2-11); NEUTROPHILS 76.6 % (40-80); PLATELET COUNT 102 10x3/uL (130-400); RDW 14.7 % (11.5-14.5)
[2018-05-25 06:19] LABS: APTT 30.8 SECONDS (22.8-39.4); INR 1.51 (0.85-1.17); PROTIME 17.7 SECONDS (11.6-15.0)
[2018-05-25 06:23] LABS: WBC 4.3 10x3/uL (4.8-10.8)
[2018-05-25 06:44] LABS: ALBUMIN 2.5 g/dL (3.4-5.0); BILIRUBIN - TOTAL 0.69 mg/dL (0.2-1.3); CALCIUM 8.3 mg/dL (8.5-10.1); CARBON DIOXIDE 25.2 mmol/L (21.0-32.0); POTASSIUM - SERUM 3.2 mmol/L (3.5-5.1); PROTEIN - SERUM 6.8 g/dL (6.4-8.2)
[2018-05-25 06:45] LABS: CREATININE - SERUM 0.9 mg/dL (0.6-1.3)
[2018-05-25 07:36] VITALS: BP 124/79
[2018-05-25 11:52] VITALS: BP 107/51
[2018-05-25 15:53] VITALS: BP 105/42
[2018-05-25 19:41] VITALS: BP 98/42
[2018-05-26 04:33] VITALS: BP 101/40
[2018-05-26 04:55] LABS: BASOPHILS 0.5 % (0-2); EOSINOPHILS 3.8 % (0-7); HEMATOCRIT 30.3 % (36.0-48.0); HEMOGLOBIN 9.9 g/dL (12-16); IMMATURE GRANULOCYTES 0.2 % (0-5); LYMPHOCYTES 15.8 % (15-50); MCH 27.5 pg (26.0-34.0); MCHC 32.7 g/dL (31.0-37.0); MCV 84.2 fL (80.0-100.0); MEAN PLATELET VOLUME 9.8 fL (7.4-10.4); MONOCYTES 10.8 % (2-11); NEUTROPHILS 68.9 % (40-80); PLATELET COUNT 93 10x3/uL (130-400); RDW 14.5 % (11.5-14.5); WBC 4.3 10x3/uL (4.8-10.8)
[2018-05-26 05:20] LABS: CALCIUM 8.3 mg/dL (8.5-10.1); CARBON DIOXIDE 24.3 mmol/L (21.0-32.0); CHLORIDE - SERUM 105 mmol/L (98-107); CREATININE - SERUM 0.8 mg/dL (0.6-1.3); GLUCOSE 163 mg/dL (74-106); MAGNESIUM - SERUM 1.6 mg/dL (1.8-2.4); SODIUM 138 mmol/L (136-145); eGFR NON AFRICAN AMERICAN 78 mL/min (90-120)
[2018-05-26 05:33] LABS: CALC OSMOLALITY 277 mosm/kg (275-300); POTASSIUM - SERUM 4.3 mmol/L (3.5-5.1); UREA NITROGEN 6 mg/dL (7-18)
[2018-05-26 07:27] VITALS: BP 102/54
[2018-05-26] MEDS ORDERED: MAG-OX 400 MG400 MG PO (10:22)
[2018-05-26] MEDS ORDERED: PROTONIX40 MG PO (10:22)
[2018-05-26 10:48] VITALS: BP 108/64
== END 2018-05-26 16:20 | disposition home or self-care (01) | DRG 433 ==
LOC: D.ER 16:02 → D.EDHOLD 18:42 → D.M3 18:42 → OBSVTIME 18:43 → D.M3 19:07
PROVIDERS: Family Medicine; Internal Medicine Nephrology; Radiology Diagnostic Radiology
PROC: 0W9G3ZZ Drainage of Peritoneal Cavity, Percutaneous Approach (ICD-10-PCS; principal; 2018-05-25 09:21)
DX: K70.31 Alcoholic cirrhosis of liver with ascites (principal); N39.0 Urinary tract infection, site not specified; D68.9 Coagulation defect, unspecified; D61.818 Other pancytopenia; E83.42 Hypomagnesemia; I50.9 Heart failure, unspecified; E87.6 Hypokalemia; E78.5 Hyperlipidemia, unspecified; E11.9 Type 2 diabetes mellitus without complications

== ENCOUNTER 2018-07-27 16:56 | Observation (INO) | payer OTHER ==
[~2018-07-27] VITALS: Ht 157.5 cm; Wt 71.2 kg
[~2018-07-27 16:56] MED LIST changes: +GLUCOPHAGE1000 MG PO; +MAG-OX 400 MG400 MG PO; +PROTONIX40 MG PO
[2018-07-27 18:02] VITALS: BP 151/85
[2018-07-27 18:25] LABS: BASOPHILS 0.5 % (0-2); EOSINOPHILS 1.1 % (0-7); HEMATOCRIT 32.7 % (36.0-48.0); HEMOGLOBIN 10.7 g/dL (12-16); LYMPHOCYTES 13.4 % (15-50); MCHC 32.7 g/dL (31.0-37.0); MCV 82.4 fL (80.0-100.0); MEAN PLATELET VOLUME 9.4 fL (7.4-10.4); MONOCYTES 8.6 % (2-11); NEUTROPHILS 76.4 % (40-80); PLATELET COUNT 111 10x3/uL (130-400); RBC 3.97 10x6/uL (4.00-5.40); RDW 15.9 % (11.5-14.5); WBC 3.7 10x3/uL (4.8-10.8)
[2018-07-27 18:41] LABS: ALBUMIN 2.8 g/dL (3.4-5.0); ALKALINE PHOSPHATASE 56 U/L (46-116); ALT (SGPT) 20 U/L (10-68); BILIRUBIN - TOTAL 0.93 mg/dL (0.2-1.3); CALC OSMOLALITY 283 mosm/kg (275-300); CALCIUM 9.1 mg/dL (8.5-10.1); CARBON DIOXIDE 29.2 mmol/L (21.0-32.0); CHLORIDE - SERUM 102 mmol/L (98-107); CREATININE - SERUM 0.8 mg/dL (0.6-1.3); GLUCOSE 139 mg/dL (74-106); POTASSIUM - SERUM 3.8 mmol/L (3.5-5.1); PROTEIN - SERUM 7.9 g/dL (6.4-8.2); SODIUM 142 mmol/L (136-145); UREA NITROGEN 11 mg/dL (7-18); eGFR NON AFRICAN AMERICAN 78 mL/min (90-120)
[2018-07-27 18:46] LABS: LIPASE 118 U/L (73-393); PRO BNP 235 pg/mL (0-125); TROPONIN-I < 0.017 ng/mL (0.000-0.060)
[2018-07-27 19:43] LABS: APPEARANCE CLEAR (CLEAR); BILIRUBIN NEGATIVE (NEGATIVE); COLOR YELLOW (YELLOW); GLUCOSE NEGATIVE (NEGATIVE); KETONE NEGATIVE (NEGATIVE); NITRITE NEGATIVE (NEGATIVE); PROTEIN NEGATIVE (NEGATIVE); SPECIFIC GRAVITY 1.015 (1.005-1.020); UROBILINOGEN NORMAL (NORMAL)
[2018-07-28] VITALS (7 sets, daily range): BP systolic 97–134; BP diastolic 43–79; Ht 157.5 cm; Wt 71.2 kg
[2018-07-28 09:45] LABS: APTT 31.1 SECONDS (22.8-39.4); INR 1.47 (0.85-1.17); PROTIME 17.2 SECONDS (11.6-15.0)
[2018-07-28 11:20] LABS: BASOPHILS 0.3 % (0-2); EOSINOPHILS 3.3 % (0-7); HEMATOCRIT 30.4 % (36.0-48.0); HEMOGLOBIN 9.7 g/dL (12-16); IMMATURE GRANULOCYTES 0.3 % (0-5); LYMPHOCYTES 14.4 % (15-50); MCH 26.6 pg (26.0-34.0); MCHC 31.9 g/dL (31.0-37.0); MCV 83.3 fL (80.0-100.0); MONOCYTES 6.9 % (2-11); NEUTROPHILS 74.8 % (40-80); PLATELET COUNT 105 10x3/uL (130-400); RBC 3.65 10x6/uL (4.00-5.40); RDW 15.9 % (11.5-14.5); WBC 3.1 10x3/uL (4.8-10.8)
[2018-07-28 11:33] LABS: ALBUMIN 2.5 g/dL (3.4-5.0); ANION GAP 11.4 mmol/L (8-16); BILIRUBIN - TOTAL 0.75 mg/dL (0.2-1.3); CALCIUM 8.7 mg/dL (8.5-10.1); CARBON DIOXIDE 29.9 mmol/L (21.0-32.0); POTASSIUM - SERUM 3.3 mmol/L (3.5-5.1); PROTEIN - SERUM 7.4 g/dL (6.4-8.2)
[2018-07-29 04:00] VITALS: BP 100/61
[2018-07-29 06:20] LABS: ALBUMIN 2.2 g/dL (3.4-5.0); ANION GAP 13.4 mmol/L (8-16); BILIRUBIN - TOTAL 0.67 mg/dL (0.2-1.3); CALCIUM 8.4 mg/dL (8.5-10.1); CARBON DIOXIDE 26.5 mmol/L (21.0-32.0); CREATININE - SERUM 0.9 mg/dL (0.6-1.3); POTASSIUM - SERUM 3.9 mmol/L (3.5-5.1); PROTEIN - SERUM 6.7 g/dL (6.4-8.2)
[2018-07-29 06:25] LABS: APTT 31.3 SECONDS (22.8-39.4); INR 1.53 (0.85-1.17); PROTIME 17.8 SECONDS (11.6-15.0)
[2018-07-29 06:36] LABS: HEMATOCRIT 29.7 % (36.0-48.0); HEMOGLOBIN 9.4 g/dL (12-16); MCH 26.3 pg (26.0-34.0); MCHC 31.6 g/dL (31.0-37.0); MEAN PLATELET VOLUME 9.2 fL (7.4-10.4); PLATELET COUNT 97 10x3/uL (130-400); RBC 3.58 10x6/uL (4.00-5.40); WBC 2.9 10x3/uL (4.8-10.8)
[2018-07-29 07:42] LABS: LYMPHOCYTES 18 % (15-50); MONOCYTES 6 % (2-11); NEUTROPHILS 73 % (40-80)
[2018-07-29 07:43] LABS: PLATELET ESTIMATE DECREASED
[2018-07-29 07:44] LABS: ANISOCYTOSIS OCC
[2018-07-29 08:51] VITALS: BP 122/70
[2018-07-29] MEDS ORDERED: FOLIC ACID1 MG PO (13:40)
[2018-07-29] MEDS ORDERED: THIAMINE HCL50 MG PO (13:40)
[2018-07-29] MEDS ORDERED: MULTI-DAY VITAM1 TAB PO (13:40)
--- NOTE | 2018-07-29 14:07 | MORECARE ---
CASE MANAGEMENT DISCHARGE SUMMARY PATIENT: KYLEE TREVINO UNIT: [id number] ADM DATE: 07/27/18 AGE: 57 : 60 SEX: F ROOM/BED: D[facility] AUTHOR: CARLENE DUQUE PHYSICIAN: REFERRING PHYSICIAN: DAWOOD CARVAJAL MD DATE OF SERVICE: 07/29/18 Discharge Plan Patient Name: KYLEE TREVINO [facility] [facility] 1960 Planned Disposition: Home Anticipated Discharge Date: 07/29/18 Discharge Date: Expected LOS: 2 Initial Reviewer: [email or web address] Initial Review Date: 07/29/2018 Generated: 07/29/18 3:07 pm Patient Name: KYLEE TREVINO Page 85972 at 1407 All edits/amendments must be made on the electronic document DICTATION DATE: 07/29/18 1406 RADIATOR SPECIALIST: BRIANNA 07/29/18 1406 RPT#: [id number] DC DATE: STATUS: ADM IN [facility] [address] [place] [address] END OF REPORT
--- NOTE | 2018-07-29 14:15 | MORECARE ---
CASE MANAGEMENT DISCHARGE SUMMARY PATIENT: KYLEE TREVINO UNIT: [id number] ADM DATE: 07/27/18 AGE: 57 : 60 SEX: F ROOM/BED: D.2235 AUTHOR: CARLENE DUQUE PHYSICIAN: REFERRING PHYSICIAN: DAWOOD CARVAJAL MD DATE OF SERVICE: 07/29/18 Discharge Plan Patient Name: KYLEE TREVINO Facility: [facility]:[place] : 1960 Planned Disposition: Home Anticipated Discharge Date: 07/29/18 Discharge Date: Expected LOS: 2 Initial Reviewer: [email or web address] Initial Review Date: 07/29/2018 Generated: 07/29/18 3:15 pm DCPIA - Discharge Planning Initial Assessment Updated by [email or web address]: Kimmy Barba on 07/29/18 2:13 pm * Is the patient Alert and Oriented? Yes * How many steps to enter\exit or inside your home? 2/0 * PCP Dr. Acevedo in [place] * Pharmacy [facility] in [place] * Preadmission Environment Home with Family * ADLs Independent * Equipment Glucometer * List name and contact numbers for known caregivers / representatives who currently or will assist patient after discharge: Stevie queen - [phone] Jr. Anat adame - [phone] * Verbal permission to speak to the caregivers and representatives has been obtained from the patient. Yes * Community resources currently utilized None * Additional services required to return to the preadmission environment? No * Can the patient safely return to the preadmission environment? Yes * Has this patient been hospitalized within the prior 30 days at any hospital? No Last DP export: 07/29/18 1:07 Patient Name: KYLEE TREVINO Page 50691 at 1415 All edits/amendments must be made on the electronic document DICTATION DATE: 07/29/181413 BUFFING AND SUEDING MACHINE OPERATOR: BRIANNA 07/29/18 1414 RPT#: [id number] DC DATE: STATUS: ADM IN [facility] [address] [place] [address] END OF REPORT
--- NOTE | 2018-07-29 14:22 | MORECARE ---
CASE MANAGEMENT DISCHARGE SUMMARY PATIENT: KYLEE TREVINO UNIT: [id number] ADM DATE: 07/27/18 AGE: 57 : 60 SEX: F ROOM/BED: D.2235 AUTHOR: CARLENE DUQUE PHYSICIAN: REFERRING PHYSICIAN: DAWOOD CARVAJAL MD DATE OF SERVICE: 07/29/18 Discharge Plan Patient Name: KYLEE TREVINO Facility: [facility]:[place] : 1960 Planned Disposition: Home Anticipated Discharge Date: 07/29/18 Discharge Date: Expected LOS: 2 Initial Reviewer: [email or web address] Initial Review Date: 07/29/2018 Generated: 07/29/18 3:22 pm Comments DCP- Discharge Planning Updated by [email or web address]: Kimmy Barba on 07/29/18 1:[address] Patient Name: KYLEE TREVINO Admission Status: ER Accout number: [id number] Admission Date: 07-27-2018 : 1960 Admission Diagnosis: Attending: DAWOOD CARVAJAL Current LOS: 2 Anticipated DC Date: 07-29-2018 Planned Disposition: Home Primary Insurance: [employer] MANAGED MEDICAID Discharge Planning Comments: CM met with patient to discuss discharge planning, she is alone in the room. States she is independent with all ADL's. States she checks her glucose twice a day prior to meal. States she lives with her uncle and she drives her where she needs to go if he is available. States she will need [employer] transportation home if discharged today and gives me the go ahead to call them. I called [employer] transportation and they have set her up for transportation at 4PM, confirmation number is [phone] (per Tori). Her Medicaid number for [employer] is [id number]. Declines need for home health services. CM will continue to follow and assist with discharge planning/needs. Metal Tester: Kimmy Barba DCPIA - Discharge Planning Initial Assessment Updated by [email or web address]: Kimmy Barba on 07/29/18 2:13 pm * Is the patient Alert and Oriented? Yes * How many steps to enter\exit or inside your home? 2/0 * PCP Dr. Acevedo in [place] * Pharmacy [facility] in [place] * Preadmission Environment Home with Family * ADLs Independent * Equipment Glucometer * List name and contact numbers for known caregivers / representatives who currently or will assist patient after discharge: Stevie Coppola - uncle - [phone] Jr. Anat adame - [phone] * Verbal permission to speak to the caregivers and representatives has been obtained from the patient. Yes * Community resources currently utilized None * Additional services required to return to the preadmission environment? No * Can the patient safely return to the preadmission environment? Yes * Has this patient been hospitalized within the prior 30 days at any hospital? No Last DP export: 07/29/18 1:15 Patient Name: KYLEE TREVINO Page 75416 at 1422 All edits/amendments must be made on the electronic document DICTATION DATE: 07/29/181421 SENIOR SOFTWARE DEVELOPER: BRIANNA 07/29/181421 RPT#: [id number] DC DATE: STATUS: ADM IN [facility] [address] [place] [address] END OF REPORT
[2018-07-29 15:27] VITALS: BP 118/68
--- NOTE | 2018-08-01 14:50 | MORECARE ---
CASE MANAGEMENT DISCHARGE SUMMARY PATIENT: KYLEE TREVINO UNIT: [id number] ADM DATE: 07/27/18 AGE: 57 : 60 SEX: F ROOM/BED: D.2235 AUTHOR: CARLENE DUQUE PHYSICIAN: REFERRING PHYSICIAN: DAWOOD CARVAJAL MD DATE OF SERVICE: 08/01/18 Discharge Plan Patient Name: KYLEE TREVINO Facility: [facility]:[place] : 1960 Planned Disposition: Home Anticipated Discharge Date: 07/29/18 Discharge Date: 07/29/2018 Expected LOS: 2 Initial Reviewer: [email or web address] Initial Review Date: 07/29/2018 Generated: 08/01/18 3:50 pm Comments DCP- Discharge Planning Updated by [email or web address]: Kimmy Barba on 07/29/18 1:[address] Patient Name: KYLEE TREVINO Admission Status: ER Accout number: [id number] Admission Date: 07-27-2018 : 1960 Admission Diagnosis: Attending: DAWOOD CARVAJAL Current LOS: 2 Anticipated DC Date: 07-29-2018 Planned Disposition: Home Primary Insurance: [employer] MANAGED MEDICAID Discharge Planning Comments: CM met with patient to discuss discharge planning, she is alone in the room. States she is independent with all ADL's. States she checks her glucose twice a day prior to meal. States she lives with her uncle and she drives her where she needs to go if he is available. States she will need [facility] transportation home if discharged today and gives me the go ahead to call them. I called [facility] transportation and they have set her up for transportation at 4PM, confirmation number is [phone] (per Tori). Her Medicaid number for [facility] is [id number]. Declines need for home health services. CM will continue to follow and assist with discharge planning/needs. Chiller Operator: Kimmy Barba DCPIA - Discharge Planning Initial Assessment Updated by [email or web address]: Kimmy Barba on 07/29/18 2:13 pm * Is the patient Alert and Oriented? Yes * How many steps to enter\exit or inside your home? 2/0 * PCP Dr. Acevedo in [place] * Pharmacy [facility] in [place] * Preadmission Environment Home with Family * ADLs Independent * Equipment Glucometer * List name and contact numbers for known caregivers / representatives who currently or will assist patient after discharge: Stevie Coppola - uncle - [phone] Jr. Anat adame - [phone] * Verbal permission to speak to the caregivers and representatives has been obtained from the patient. Yes * Community resources currently utilized None * Additional services required to return to the preadmission environment? No * Can the patient safely return to the preadmission environment? Yes * Has this patient been hospitalized within the prior 30 days at any hospital? No Last DP export: 07/29/18 1:22 Patient Name: KYLEE TREVINO Page 03296 at 1450 All edits/amendments must be made on the electronic document DICTATION DATE: 08/01/181448 CONTROL AREA OPERATOR: BRIANNA 08/01/181448 RPT#: [id number] DC DATE:07/29/18 STATUS: DIS IN [facility] [address] [place] [address] END OF REPORT
== END 2018-07-29 18:28 | disposition home or self-care (01) ==
LOC: D.ER 16:56 → D.MS 18:09 → D.EDHOLD 18:09 → OBSVTIME 18:10 → D.MS 19:22
PROVIDERS: Family Medicine; Radiology Vascular & Interventional Radiology; ADMIT Emergency Medicine
DX: K70.31 Alcoholic cirrhosis of liver with ascites (principal); I50.9 Heart failure, unspecified; E11.65 Type 2 diabetes mellitus with hyperglycemia; D64.9 Anemia, unspecified; R60.9 Edema, unspecified; R16.1 Splenomegaly, not elsewhere classified; D69.6 Thrombocytopenia, unspecified; C95.90 Leukemia, unspecified not having achieved remission; D68.9 Coagulation defect, unspecified

== ENCOUNTER 2019-01-31 08:00 | Outpatient (CLI) | payer MEDICAID ==
[2018-07-28 13:36] VITALS: BMI 28.7
[~2019-01-31 08:00] MED LIST changes: +FOLIC ACID1 MG PO; +MULTI-DAY VITAM1 TAB PO; +THIAMINE HCL50 MG PO
== END 2019-01-31 17:00 | disposition home or self-care (01) ==
LOC: D.MAMMO 08:00
PROVIDERS: ATTEND General Practice
DX: Z12.31 Encounter for screening mammogram for malignant neoplasm of breast (principal)

== ENCOUNTER 2019-05-26 19:55 | Emergency (ER) | payer MEDICAID ==
[~2019-05-26] VITALS: Ht 157.5 cm; Wt 68.2 kg
[2019-05-26 20:01] VITALS: Ht 157.5 cm; Wt 68.2 kg
[2019-05-26 20:34] LABS: BASOPHILS 0.2 % (0-2); EOSINOPHILS 0.1 % (0-7); HEMATOCRIT 20.4 % (36.0-48.0); IMMATURE GRANULOCYTES 0.3 % (0-5); LYMPHOCYTES 9.7 % (15-50); MCH 24.5 pg (26.0-34.0); MCHC 29.4 g/dL (31.0-37.0); MCV 83.3 fL (80.0-100.0); MEAN PLATELET VOLUME 8.4 fL (7.4-10.4); MONOCYTES 5.1 % (2-11); NEUTROPHILS 84.6 % (40-80); RBC 2.45 10x6/uL (4.00-5.40); RDW 18.4 % (11.5-14.5); WBC 11.5 10x3/uL (4.8-10.8)
[2019-05-26 20:44] LABS: CALC OSMOLALITY 295 mosm/kg (275-300); CALCIUM 8.4 mg/dL (8.5-10.1); CARBON DIOXIDE 13.7 mmol/L (21.0-32.0); CHLORIDE - SERUM 101 mmol/L (98-107); CREATININE - SERUM 1.3 mg/dL (0.6-1.3); GLUCOSE 152 mg/dL (74-106); SODIUM 143 mmol/L (136-145); UREA NITROGEN 35 mg/dL (7-18); eGFR NON AFRICAN AMERICAN 44 mL/min (90-120)
[2019-05-26 20:48] LABS: APTT 29.2 SECONDS (22.8-39.4)
[2019-05-26 20:48] LABS: PLATELET COUNT 247 10x3/uL (130-400)
[2019-05-26 20:51] LABS: ALBUMIN 2.1 g/dL (3.4-5.0); ALKALINE PHOSPHATASE 38 U/L (46-116); AMYLASE - SERUM 33 U/L (25-115); BILIRUBIN - TOTAL 0.75 mg/dL (0.2-1.3); LIPASE 130 U/L (73-393); PROTEIN - SERUM 6.1 g/dL (6.4-8.2)
[2019-05-26 20:55] LABS: INR 2.08 (0.85-1.17); PROTIME 22.7 SECONDS (11.6-15.0)
[2019-05-26 21:42] LABS: ALT (SGPT) < 30 U/L (10-68)
[2019-05-26 23:19] LABS: BASOPHILS 0.1 % (0-2); EOSINOPHILS 0 % (0-7); HEMATOCRIT 25.6 % (36.0-48.0); HEMOGLOBIN 7.7 g/dL (12-16); IMMATURE GRANULOCYTES 0.8 % (0-5); MCH 25.3 pg (26.0-34.0); MCHC 30.1 g/dL (31.0-37.0); MCV 84.2 fL (80.0-100.0); MEAN PLATELET VOLUME 8.6 fL (7.4-10.4); MONOCYTES 6.5 % (2-11); NEUTROPHILS 88.6 % (40-80); PLATELET COUNT 195 10x3/uL (130-400); RBC 3.04 10x6/uL (4.00-5.40); RDW 16.6 % (11.5-14.5); WBC 15.6 10x3/uL (4.8-10.8)
[2019-05-27] VITALS: BP 100/53
== END 2019-05-27 | disposition other institution (70) ==
LOC: D.ER 19:55
PROVIDERS: Emergency Medicine
DX: K92.2 Gastrointestinal hemorrhage, unspecified (principal); E11.9 Type 2 diabetes mellitus without complications

== ENCOUNTER 2019-06-09 17:12 | Inpatient (IN) | payer MEDICAID ==
[~2019-06-09] VITALS: Ht 157.5 cm; Wt 75.2 kg
[2019-06-09 18:22] LABS: BASOPHILS 0.4 % (0-2); EOSINOPHILS 1.4 % (0-7); HEMATOCRIT 35.2 % (36.0-48.0); HEMOGLOBIN 11.1 g/dL (12-16); LYMPHOCYTES 7.3 % (15-50); MCHC 31.5 g/dL (31.0-37.0); MCV 88.7 fL (80.0-100.0); MEAN PLATELET VOLUME 9.4 fL (7.4-10.4); MONOCYTES 6.4 % (2-11); NEUTROPHILS 84.5 % (40-80); RBC 3.97 10x6/uL (4.00-5.40); WBC 7.4 10x3/uL (4.8-10.8)
[2019-06-09 18:23] LABS: PLATELET COUNT 144 10x3/uL (130-400)
[2019-06-09 18:32] LABS: CALC OSMOLALITY 278 mosm/kg (275-300); CALCIUM 8.8 mg/dL (8.5-10.1); CARBON DIOXIDE 24.7 mmol/L (21.0-32.0); CHLORIDE - SERUM 104 mmol/L (98-107); CREATININE - SERUM 0.7 mg/dL (0.6-1.3); GLUCOSE 137 mg/dL (74-106); POTASSIUM - SERUM 4.6 mmol/L (3.5-5.1); SODIUM 139 mmol/L (136-145); UREA NITROGEN 9 mg/dL (7-18); eGFR NON AFRICAN AMERICAN > 90 mL/min (90-120)
[2019-06-09 18:36] LABS: APTT 27.4 SECONDS (22.8-39.4); INR 1.55 (0.85-1.17)
[2019-06-09 18:49] LABS: ALBUMIN 2.5 g/dL (3.4-5.0); ALKALINE PHOSPHATASE 69 U/L (46-116); ALT (SGPT) 25 U/L (10-68); BILIRUBIN - TOTAL 1.34 mg/dL (0.2-1.3); CKMB 2.2 U/L (0.0-3.6); CREATINE KINASE 116 UL (21-215); MAGNESIUM - SERUM 1.5 mg/dL (1.8-2.4); PRO BNP 1420 pg/mL (0-125); TROPONIN-I < 0.017 ng/mL (0.000-0.060)
[2019-06-09 19:00] VITALS: BP 125/79
--- NOTE | 2019-06-09 19:13 | NUR ---
HAND OFF REPORT GIVEN TO SHARLA LEE
[2019-06-09 20:00] VITALS: BP 122/53
[2019-06-09 20:20] VITALS: BP 134/75; BMI 41.2
--- NOTE | 2019-06-09 21:11 | NUR ---
PT ARRIVED TO FLOOR VIA [employer] A/O XT. RFA 20G IV SLAINE LOCKED. PT UAMS RECORDS ON CHART. PT PLACED ON TELEMETRY. PT DENIES ANY PAIN OR NEEDS AT THIS TIME. BED LOW CALL LIGHT WITHIN REACH. WILL CONTINUE TO MONITOR.
[2019-06-09] MEDS ORDERED: BASAGLAR K100 UNIT/1 SC (21:20)
[2019-06-09] MEDS ORDERED: LASIX80 MG (21:21)
[2019-06-09 22:14] VITALS: BP 117/62; BMI 30.3
[2019-06-10 00:29] VITALS: BP 92/34
[2019-06-10] MEDS ORDERED: FERROUS SULFAT325 MG PO (02:18)
[2019-06-10] MEDS ORDERED: GLUCOPHAGE1000 MG PO (02:19)
[2019-06-10] MEDS ORDERED: MIDODRINE HCL10 MG PO (02:21)
[2019-06-10] MEDS ORDERED: KEPPRA500 MG PO (02:21)
[2019-06-10] MEDS ORDERED: K-DUR20 MEQ PO (02:22)
[2019-06-10] MEDS ORDERED: CORGARD20 MG PO (02:22)
[2019-06-10] MEDS ORDERED: XIFAXAN550 MG PO (02:23)
[2019-06-10] MEDS ORDERED: FUROSEMIDE20 MG PO (02:25)
[2019-06-10] MEDS ORDERED: ALDACTONE25 MG PO (02:26)
--- NOTE | 2019-06-10 04:09 | NUR ---
PT RESTING IN BED WITH EYES CLOSED. RR EVEN AND UNLABORED. NO S/S OF DISTRESS. BED LOW CALL LIGHT WITHIN REACH. WILL CONTINUE TO MONITOR.
[2019-06-10 04:15] VITALS: BP 96/57
--- NOTE | 2019-06-10 07:55 | NUR ---
PT RESTING PEACEUFLLY, BREATHS EVEN, REGULAR AND UNLABORED. NO SIGNS OR SYMPTOMS OF ACTUE DISTRESS NOTED AT THIS TIME. NO FAMILY PRESENT AT THIS TIME, CL IN REACH, SRX2. DID NOT FURTHER DISTURB AT THIS TIME.
[2019-06-10 08:19] VITALS: BP 94/45
[2019-06-10 09:44] VITALS: Ht 157.5 cm; Wt 75.2 kg
--- NOTE | 2019-06-10 14:53 | NUR ---
I have reviewed this patient and I concur with the Shift Assessment completed by the Licensed Practical Nurse today this shift.
[2019-06-10 16:00] VITALS: BP 106/54
--- NOTE | 2019-06-10 19:48 | NUR ---
INITIAL ROUNDS COMPLETED AT 1920 HRS. PT DENIED ANY DISCOMFORT. SR UP X2, CALL LIGHT WITHIN REACH.
[2019-06-10 20:33] VITALS: BP 92/46
--- NOTE | 2019-06-10 22:00 | NUR ---
ASSESSMENT COMPLETED AT 2000 HRS. VSS EXCPET SBP 92. SR PER CM HR 87. ALERT AND ORIENTED TO PERSON, PLACE AND TIME. CHEN. 1+ GENERALIZED EDEMA NOTED. BRUISES NOTED TO BILAT ARM. IV TO UPPER RFA SL. LUNGS DIMINISHED IN BASES BILAT. DRESSING TO R LOWER ABD CLEAN, DRY AND INTACT. PM FSBS 227. 4 UNITS REG INSULIN GIVEN SUB-Q TO UPPER R ARM. PM MEDS GIVEN EXCEPT IV LASIX SBP 92. PT CURRENTLY RESTING WITH EYES CLOSED. RESP EVEN AND REGULAR. SR UP X2, CALL LIGHT WITHIN REACH.
--- NOTE | 2019-06-10 23:34 | NUR ---
PT RESTING WITH EYES CLOSED. RESP EVEN AND REGULAR. SR UP X2, CALL LIGHT WITHIN REACH.
[2019-06-11 00:35] VITALS: BP 93/53
--- NOTE | 2019-06-11 02:00 | NUR ---
PT RESTING WITH EYES CLOSED. RESP EVEN AND REGULAR. SR UP X2, CALL LIGHT WITHIN REACH.
--- NOTE | 2019-06-11 04:24 | NUR ---
PT RESTING WITH EYES CLOSED. RESP EVEN AND REGULAR. SR UP X2, CALL LIGHT WITHIN REACH.
[2019-06-11 04:41] VITALS: BP 94/49
--- NOTE | 2019-06-11 06:58 | NUR ---
VSS THROUGHOUT NIGHT. PT DENIED ANY DICOMFORT. NEEDS MET; WILL CONTINUE TO MONITOR.
--- NOTE | 2019-06-11 07:01 | NUR ---
VSS THROUGHOUT NIGHT. SR PER CM. PT DENEID ANY DISCOMFORT. NEEDS MET; WILL CONTINUE TO MONITOR.
--- NOTE | 2019-06-11 07:37 | NUR ---
PT AWAKE AND ORIENTED WHEN I ENTERED ROOM. NO COMPLAINTS/CONCERNS, ALL QUESTIONS ANSWERED TO THE BEST OF MY ABILITY. NO FAMILY PRESEENT AT BEDSIDE. CL IN REACH, SRX2.
[2019-06-11 08:03] VITALS: BP 103/47
--- NOTE | 2019-06-11 10:29 | NUR ---
I have reviewed this patient and I concur with the Shift Assessment completed by the Licensed Practical Nurse today this shift.
[2019-06-11 12:02] VITALS: BP 93/46
[2019-06-11] MEDS ORDERED: ALDACTONE50 MG PO (12:44)
[2019-06-11] MEDS ORDERED: LASIX80 MG PO (12:45)
--- NOTE | 2019-06-11 13:02 | NUR ---
PT IS UNHAPPY TO BE RECIEVING A DISCHARGE. WHEN I EXPLAINED WHY SHE WAS BEING D/C AND ALTHOUGH SHE COULD FIGHT IT, IF SHE LOST INSURANCE WOULD NOT PAY FOR THE ENTIRE STAY AT THE HOSPITAL. PT GAVE ME [place] NUMBER TO CALL FOR A RIDE. ([place]) HOME: CELL:
--- NOTE | 2019-06-11 13:19 | MORECARE ---
CASE MANAGEMENT DISCHARGE SUMMARY PATIENT: KYLEE TREVINO UNIT: [id number] ADM DATE: 06/10/19 AGE: 58 : 60 SEX: F ROOM/BED: D.2135 AUTHOR: CARLENE DUQUE PHYSICIAN: REFERRING PHYSICIAN: VIDA HAUSER MD DATE OF SERVICE: 06/11/19 Discharge Plan Patient Name: KYLEE TREVINO [facility] [facility] 1960 Planned Disposition: Anticipated Discharge Date: Discharge Date: Expected LOS: Initial Reviewer: [id number] Initial Review Date: 06/11/2019 Generated: 06/11/19 2:19 pm DCPIA - Discharge Planning Initial Assessment Updated by [email or web address]: Caitlyn Rod on 06/11/19 1:16 pm * Is the patient Alert and Oriented? Yes * PCP [facility] * [facility] * Preadmission Environment Home with Family * ADLs Independent * Equipment Bedside Commode * Other Equipment WALKER * Additional services required to return to the preadmission environment? No * Can the patient safely return to the preadmission environment? Yes * Has this patient been hospitalized within the prior 30 days at any hospital? Yes Patient Name: KYLEE TREVINO Page [id number] at 1319 All edits/amendments must be made on the electronic document DICTATION DATE: 06/11/191318 FULLING MILL OPERATOR: BRIANNA 06/11/19 1319 RPT#: [id number] DC DATE: STATUS: ADM IN [facility] [address] [place] [address] END OF REPORT
--- NOTE | 2019-06-11 13:26 | MORECARE ---
CASE MANAGEMENT DISCHARGE SUMMARY PATIENT: KYLEE TREVINO UNIT: [id number] ADM DATE: 06/10/19 AGE: 58 : 60 SEX: F ROOM/BED: D.4064 AUTHOR: CARLENE DUQUE PHYSICIAN: REFERRING PHYSICIAN: VIDA HAUSER MD DATE OF SERVICE: 06/11/19 Discharge Plan Patient Name: KYLEE TREVINO Facility: [facility]:[place] : 1960 Planned Disposition: Anticipated Discharge Date: Discharge Date: Expected LOS: Initial Reviewer: [id number] Initial Review Date: 06/11/2019 Generated: 06/11/19 2:26 pm Comments DCP- Discharge Planning Updated by [id number]: Caitlyndavid Rod on 06/11/19 12:[address] Patient Name: KYLEE TREVINO Admission Status: ER Accout number: [id number] Admission Date: 06-10-2019 : 1960 Admission Diagnosis: Attending: VIDA HAUSER Current LOS: 1 Anticipated DC Date: Planned Disposition: Primary Insurance: MEDICAID [place] Discharge Planning Comments: CM MET WITH PATIENT AFTER OBTAINING VERBAL CONSENT. SHE PLANS TO DC TO HOME TODAY. IS CALLING SOMEONE TO PICK HER UP NOW. DENIES NEED FOR HH OR ADDITIONAL EQUIPMENT. CM WILL FOLLOW AND ASSIST NEEDED. Burner Technician: Caitlyn Rod DCPIA - Discharge Planning Initial Assessment Updated by [id number]: Caitlyndavid Rod on 06/11/19 1:16 pm * Is the patient Alert and Oriented? Yes * PCP [facility] * [facility] * Preadmission Environment Home with Family * ADLs Independent * Equipment Bedside Commode * Other Equipment WALKER * Additional services required to return to the preadmission environment? No * Can the patient safely return to the preadmission environment? Yes * Has this patient been hospitalized within the prior 30 days at any hospital? Yes Last DP export: 06/11/19 12:20 Patient Name: KYLEE TREVINO Page [phone] at 1326 All edits/amendments must be made on the electronic document DICTATION DATE: 06/11/19 1326 CONCRETE POLISHER: BRIANNA 06/11/19 1326 RPT#: [id number] DC DATE: STATUS: ADM IN [facility] [address] [place] [address] END OF REPORT
--- NOTE | 2019-06-11 14:32 | NUR ---
PHARMACY NEEDS TO GIVE 1 80 MG LASIX FOR PT TO TAKE HOME WITH HER.
--- NOTE | 2019-06-11 14:32 | MORECARE ---
CASE MANAGEMENT DISCHARGE SUMMARY PATIENT: KYLEE TREVINO UNIT: [id number] ADM DATE: 06/10/19 AGE: 58 : 60 SEX: F ROOM/BED: D.9799 AUTHOR: CARLENE DUQUE PHYSICIAN: REFERRING PHYSICIAN: VIDA HAUSER MD DATE OF SERVICE: 06/11/19 Discharge Plan Patient Name: KYLEE TREVINO Facility: [facility]:[place] : 1960 Planned Disposition: Home Hlth Svc w Plan Readm Anticipated Discharge Date: Discharge Date: Expected LOS: Initial Reviewer: [id number] Initial Review Date: 06/11/2019 Generated: 06/11/19 3:31 pm Comments DCP- Discharge Planning Updated by [email or web address]: Caitlyn Rod on 06/11/19 1:[address] Patient Name: KYLEE TREVINO Admission Status: ER Accout number: [id number] Admission Date: 06-10-2019 : 1960 Admission Diagnosis: Attending: VIDA HAUSER Current LOS: 1 Anticipated DC Date: Planned Disposition: Primary Insurance: MEDICAID [place] Discharge Planning Comments: CM MET WITH PATIENT AFTER OBTAINING VERBAL CONSENT. SHE PLANS TO DC TO HOME TODAY. IS CALLING SOMEONE TO PICK HER UP NOW. DENIES NEED FOR HH OR ADDITIONAL EQUIPMENT. CM WILL FOLLOW AND ASSIST NEEDED. Pump Attendant: Caitlyn Rod Appended by Caitlyn Rod on 06/11/2019 14:30 KNIFE GLAZER: STATES WANTS TO RESUME HH WITH [facility], [place] SIGNED. CALLED [facility] TO VERIFY, WAITING FOR CALL BACK. DCPIA - Discharge Planning Initial Assessment Updated by [id number]: Caitlyn Rod on 06/11/19 1:16 pm * Is the patient Alert and Oriented? Yes * PCP [facility] * [facility] * Preadmission Environment Home with Family * ADLs Independent * Equipment Bedside Commode * Other Equipment WALKER * Additional services required to return to the preadmission environment? No * Can the patient safely return to the preadmission environment? Yes * Has this patient been hospitalized within the prior 30 days at any hospital? Yes Coverage Notice Reviewer: [id number] - Caitlyn Rod Notice Issued Date-Time: 06/11/2019 14:30 Notice Type: Patient Choice Letter Notice Delivered To: Patient Relationship to Patient: Valve Technician Name: Delivery Method: HAND - Hand Delivered Emilee Days: Prior Verbal Notification: Recipient Understood Notice: Yes Recipient Signature: Yes Med Rec Note Co-signed by Attending: Coverage Notice Comment: [facility] RESUMPTION. Last DP export: 06/11/19 12:26 Patient Name: KYLEE TREVINO Page [phone] at 1432 All edits/amendments must be made on the electronic document DICTATION DATE: 06/11/19 1431 RISK CONTROL OFFICER: BRIANNA 06/11/19 1431 RPT#: [id number] DC DATE: STATUS: ADM IN [facility] [address] [place] [address] END OF REPORT
[2019-06-11 16:36] VITALS: BP 101/58
--- NOTE | 2019-06-11 17:15 | NUR ---
PT ESCORTED OUT VIA WHEELCHAIR TO POV. SENT 80MG PO LASIX PER ARMANI BLANTON ORDER.
--- NOTE | 2019-06-12 09:12 | MORECARE ---
CASE MANAGEMENT DISCHARGE SUMMARY PATIENT: KYLEE TREVINO UNIT: [id number] ADM DATE: 06/10/19 AGE: 58 : 60 SEX: F ROOM/BED: D.4185 AUTHOR: NETODOC PHYSICIAN: REFERRING PHYSICIAN: VIDA HAUSER MD DATE OF SERVICE: 06/12/19 Discharge Plan Patient Name: KYLEE TREVINO Facility: [facility]:[place] : 1960 Planned Disposition: Home Anticipated Discharge Date: 06/11/19 Discharge Date: 06/11/2019 Expected LOS: 1 Initial Reviewer: [id number] Initial Review Date: 06/11/2019 Generated: 06/12/19 10:12 am Comments DCP- Discharge Planning Updated by [id number]: Caitlyn Rod on 06/11/19 1:[address] Patient Name: KYLEE TREVINO Admission Status: ER Accout number: [id number] Admission Date: 06-10-2019 : 1960 Admission Diagnosis: Attending: VIDA HAUSER Current LOS: 1 Anticipated DC Date: Planned Disposition: Primary Insurance: [place]ID [place] Discharge Planning Comments: CM MET WITH PATIENT AFTER OBTAINING VERBAL CONSENT. SHE PLANS TO DC TO HOME TODAY. IS CALLING SOMEONE TO PICK HER UP NOW. DENIES NEED FOR HH OR ADDITIONAL EQUIPMENT. CM WILL FOLLOW AND ASSIST NEEDED. Gift Basket Packer: Caitlyn Rod Appended by Caitlyn Rod on 06/11/2019 14:30 CONE CHOCOLATE DIPPER: STATES WANTS TO RESUME HH WITH [facility], [place] SIGNED. CALLED [facility] TO VERIFY, WAITING FOR CALL BACK. DCPIA - Discharge Planning Initial Assessment Updated by [id number]: Caitlyn Rod on 06/11/19 1:16 pm * Is the patient Alert and Oriented? Yes * PCP [facility] * [facility] * Preadmission Environment Home with Family * ADLs Independent * Equipment Bedside Commode * Other Equipment WALKER * Additional services required to return to the preadmission environment? No * Can the patient safely return to the preadmission environment? Yes * Has this patient been hospitalized within the prior 30 days at any hospital? Yes Coverage Notice Reviewer: [id number] - Caitlyn Rod Notice Issued Date-Time: 06/11/2019 14:30 Notice Type: Patient Choice Letter Notice Delivered To: Patient Relationship to Patient: Breakfast Attendant Name: Delivery Method: HAND - Hand Delivered Emilee Days: Prior Verbal Notification: Recipient Understood Notice: Yes Recipient Signature: Yes Med Rec Note Co-signed by Attending: Coverage Notice Comment: [facility] RESUMPTION. Last DP export: 06/11/19 1:32 Patient Name: KYLEE TREVINO Page [phone] at 0912 All edits/amendments must be made on the electronic document DICTATION DATE: 06/12/19911 CONTINUITY CLERK: BRIANNA 06/12/19911 RPT#: [id number] DC DATE:06/11/19 STATUS: DIS IN [facility] [address] [place] [address] END OF REPORT
== END 2019-06-11 17:15 | disposition home health service (06) | DRG 432 ==
LOC: D.ER 17:12 → D.M2 19:10 → OBSVTIME 19:10 → D.M2 06-10 12:56
PROVIDERS: Family Medicine; Radiology Vascular & Interventional Radiology; ADMIT Internal Medicine Nephrology; ATTEND Internal Medicine Nephrology
PROC: 0W9G3ZZ Drainage of Peritoneal Cavity, Percutaneous Approach (ICD-10-PCS; principal; 2019-06-10 11:00)
DX: K70.31 Alcoholic cirrhosis of liver with ascites (principal); I50.31 Acute diastolic (congestive) heart failure; E44.0 Moderate protein-calorie malnutrition; Z68.30 Body mass index [BMI] 30.0-30.9, adult; D64.9 Anemia, unspecified; E83.42 Hypomagnesemia; E78.5 Hyperlipidemia, unspecified; E11.9 Type 2 diabetes mellitus without complications

== ENCOUNTER 2019-08-04 17:57 | Emergency (ER) | payer MEDICARE ==
[~2019-08-04] VITALS: Ht 157.5 cm; Wt 60.5 kg
[~2019-08-04 17:57] MED LIST changes: +ALDACTONE50 MG PO; +BASAGLAR K100 UNIT/1 SC; +CORGARD20 MG PO; +FERROUS SULFAT325 MG PO; +FUROSEMIDE20 MG PO; +KEPPRA500 MG PO; +LASIX80 MG; +LASIX80 MG PO; +MIDODRINE HCL10 MG PO; +XIFAXAN550 MG PO
[2019-08-04 18:02] VITALS: Ht 157.5 cm; Wt 60.5 kg
[2019-08-04 18:34] LABS: ANION GAP 23.5 mmol/L (8-16); CALCIUM 8.5 mg/dL (8.5-10.1); CARBON DIOXIDE 16.8 mmol/L (21.0-32.0); POTASSIUM - SERUM 4.3 mmol/L (3.5-5.1)
[2019-08-04 18:47] LABS: ALBUMIN 2.2 g/dL (3.4-5.0); BILIRUBIN - TOTAL 0.98 mg/dL (0.2-1.3)
[2019-08-04 18:50] LABS: BASOPHILS 0.4 % (0-2); EOSINOPHILS 0 % (0-7); IMMATURE GRANULOCYTES 0.3 % (0-5); LYMPHOCYTES 9.3 % (15-50); MCH 23.6 pg (26.0-34.0); MCV 78.8 fL (80.0-100.0); MEAN PLATELET VOLUME 8.7 fL (7.4-10.4); MONOCYTES 5.5 % (2-11); NEUTROPHILS 84.5 % (40-80); RBC 2.92 10x6/uL (4.00-5.40); RDW 16.1 % (11.5-14.5); WBC 7.8 10x3/uL (4.8-10.8)
[2019-08-04 18:51] LABS: HEMOGLOBIN 6.9 g/dL (12-16); PLATELET COUNT 226 10x3/uL (130-400)
[2019-08-04 18:55] LABS: APPEARANCE CLEAR (CLEAR); COLOR YELLOW (YELLOW); NITRITE NEGATIVE (NEGATIVE); PROTEIN NEGATIVE (NEGATIVE)
[2019-08-04 18:56] LABS: BILIRUBIN NEGATIVE (NEGATIVE); GLUCOSE NEGATIVE (NEGATIVE); KETONE SMALL mg/dL (NEGATIVE); UROBILINOGEN NORMAL (NORMAL)
[2019-08-04 18:58] LABS: BACTERIA MODERATE /hpf (NEGATIVE); EPITHELIAL CELLS 0-5 /hpf (0-5); RED CELLS - URINE OCC /hpf (0-5); WHITE CELLS - URINE 0-5 /hpf (NEGATIVE)
[2019-08-04 19:06] LABS: C-REACTIVE PROTEIN 6.4 mg/dL (0.0-0.9); THYROID STIMULATING HORMONE 1.3 uIU/mL (0.36-3.74)
[2019-08-04 21:09] LABS: INR 1.77 (0.85-1.17)
[2019-08-05 00:47] VITALS: BP 118/72
== END 2019-08-05 00:54 | disposition other institution (70) ==
LOC: D.ER 17:57
PROVIDERS: Family Medicine
DX: K92.2 Gastrointestinal hemorrhage, unspecified (principal); R18.8 Other ascites; K74.60 Unspecified cirrhosis of liver; R79.89 Other specified abnormal findings of blood chemistry; E11.9 Type 2 diabetes mellitus without complications; Z79.4 Long term (current) use of insulin; I50.9 Heart failure, unspecified

== ENCOUNTER 2019-08-08 20:39 | Inpatient (IN) | payer MEDICARE ==
[~2019-08-08] VITALS: Ht 157.5 cm; Wt 72.6 kg
--- NOTE | 2019-08-08 21:24 | NUR ---
PT GIVEN BLANKETS, DENIES ANY FURTHER NEEDS, CALL LIGHT WITHIN REACH. WILL CONTINUE TO MONITOR.
--- NOTE | 2019-08-08 21:35 | NUR ---
URINE SENT TO LAB
[2019-08-08 21:39] LABS: BASOPHILS 0.2 % (0-2); EOSINOPHILS 1.4 % (0-7); HEMATOCRIT 36.9 % (36.0-48.0); HEMOGLOBIN 11.7 g/dL (12-16); IMMATURE GRANULOCYTES 0.2 % (0-5); LYMPHOCYTES 8.7 % (15-50); MCH 26.5 pg (26.0-34.0); MCHC 31.7 g/dL (31.0-37.0); MCV 83.5 fL (80.0-100.0); MEAN PLATELET VOLUME 8.7 fL (7.4-10.4); MONOCYTES 6.6 % (2-11); NEUTROPHILS 82.9 % (40-80); PLATELET COUNT 182 10x3/uL (130-400); RBC 4.42 10x6/uL (4.00-5.40); RDW 17.1 % (11.5-14.5); WBC 5.8 10x3/uL (4.8-10.8)
[2019-08-08 21:43] LABS: APPEARANCE CLEAR (CLEAR); BILIRUBIN NEGATIVE (NEGATIVE); COLOR YELLOW (YELLOW); GLUCOSE NEGATIVE (NEGATIVE); KETONE NEGATIVE (NEGATIVE); NITRITE NEGATIVE (NEGATIVE); PROTEIN NEGATIVE (NEGATIVE); UROBILINOGEN NORMAL (NORMAL)
[2019-08-08 21:44] LABS: APTT 28.5 SECONDS (22.8-39.4); INR 1.49 (0.85-1.17); PROTIME 17.9 SECONDS (11.6-15.0)
[2019-08-08 21:49] LABS: CALC OSMOLALITY 278 mosm/kg (275-300); CALCIUM 8.1 mg/dL (8.5-10.1); CARBON DIOXIDE 25.4 mmol/L (21.0-32.0); CHLORIDE - SERUM 103 mmol/L (98-107); CREATININE - SERUM 0.9 mg/dL (0.6-1.3); POTASSIUM - SERUM 4.5 mmol/L (3.5-5.1); SODIUM 136 mmol/L (136-145); UREA NITROGEN 14 mg/dL (7-18); eGFR NON AFRICAN AMERICAN 68 mL/min (90-120)
[2019-08-08 21:51] LABS: GLUCOSE 204 mg/dL (74-106)
[2019-08-08 21:53] LABS: UDS - AMPHET NEGATIVE QUAL (NEGATIVE); UDS - BARB NEGATIVE QUAL (NEGATIVE); UDS - BENZO POSITIVE QUAL (NEGATIVE); UDS - COCAINE NEGATIVE QUAL (NEGATIVE); UDS - OPIATE POSITIVE QUAL (NEGATIVE); UDS - PCP NEGATIVE QUAL (NEGATIVE); UDS - THC NEGATIVE QUAL (NEGATIVE)
[2019-08-08 22:06] LABS: ALBUMIN 2.5 g/dL (3.4-5.0); ALKALINE PHOSPHATASE 67 U/L (46-116); ALT (SGPT) 14 U/L (10-68); BILIRUBIN - TOTAL 0.95 mg/dL (0.2-1.3); CREATINE KINASE 45 UL (21-215); LIPASE 186 U/L (73-393); PRO BNP 764 pg/mL (0-125); PROTEIN - SERUM 7.8 g/dL (6.4-8.2); THYROID STIMULATING HORMONE 4.14 uIU/mL (0.36-3.74)
[2019-08-08 22:08] LABS: TROPONIN-I < 0.017 ng/mL (0.000-0.060)
--- NOTE | 2019-08-08 22:35 | NUR ---
PT TO RADIOLOGY.
--- NOTE | 2019-08-08 22:55 | NUR ---
PT RETURNED FROM RADIOLOGY.
[2019-08-08] MEDS ORDERED: LASIX80 MG PO (23:58)
[2019-08-08] MEDS ORDERED: ALDACTONE50 MG PO (23:59)
[2019-08-09] VITALS (7 sets, daily range): BP systolic 78–105; BP diastolic 43–63; Ht 157.5 cm; Wt 72.6 kg
--- NOTE | 2019-08-09 00:05 | NUR ---
RECIEVED TO ROOM 2118 FORM ER VIA STRETCHER AT 23:47, PT A&O. RESPRATIONS EVEN ON RA. IV TO RIGHT AC WITH NS INFUSING AT 75 CC/HR. IV SITE CLEAN AND DRY. HISTORY AND MED REC OBTAINED FROM PT. ORDERS TO PLACE PT ON TELEMETRY, HOWEVER NO TELEMETRY BOXES AVAILABLE AT THIS TIME. PT DENIES PAIN OR NEEDS, BED LOW, CL IN REACH.
--- NOTE | 2019-08-09 03:28 | NUR ---
RESTING WITH EYES CLOSED, RESPERATIONS EVEN, NO S/S DISTRESS NOTED.
[2019-08-09 07:20] LABS: HEMATOCRIT 29.9 % (36.0-48.0); MCH 25.8 pg (26.0-34.0); MCHC 31.1 g/dL (31.0-37.0); MCV 83.1 fL (80.0-100.0); MEAN PLATELET VOLUME 9.4 fL (7.4-10.4)
[2019-08-09 07:36] LABS: HEMOGLOBIN 9.3 g/dL (12-16); PLATELET COUNT 142 10x3/uL (130-400); WBC 2.9 10x3/uL (4.8-10.8)
[2019-08-09 07:53] LABS: ALBUMIN 1.9 g/dL (3.4-5.0); ALKALINE PHOSPHATASE 51 U/L (46-116); ALT (SGPT) 11 U/L (10-68); BILIRUBIN - TOTAL 0.59 mg/dL (0.2-1.3); CALCIUM 7.3 mg/dL (8.5-10.1); CARBON DIOXIDE 24.7 mmol/L (21.0-32.0); CHLORIDE - SERUM 107 mmol/L (98-107); CREATININE - SERUM 0.7 mg/dL (0.6-1.3); MAGNESIUM - SERUM 1.8 mg/dL (1.8-2.4); PHOSPHOROUS 2.8 mg/dL (2.5-4.9); POTASSIUM - SERUM 4.3 mmol/L (3.5-5.1); PRO BNP 536 pg/mL (0-125); SODIUM 139 mmol/L (136-145); eGFR NON AFRICAN AMERICAN > 90 mL/min (90-120)
[2019-08-09 07:55] LABS: CALC OSMOLALITY 277 mosm/kg (275-300); GLUCOSE 116 mg/dL (74-106); PROTEIN - SERUM 5.6 g/dL (6.4-8.2); UREA NITROGEN 10 mg/dL (7-18)
[2019-08-09 08:37] LABS: INR 1.6 (0.85-1.17); PROTIME 18.9 SECONDS (11.6-15.0)
--- NOTE | 2019-08-09 09:08 | NUR ---
CONSENTS SIGNED FOR PARACENTESIS. WILL CONT. PLAN OF CARE.
--- NOTE | 2019-08-09 09:42 | NUR ---
LEAVING FOR SPECIALS BY BED. WILL MONITOR.
--- NOTE | 2019-08-09 11:15 | NUR ---
BACK FROM PARACENTESIS. VS WNL. WILL MONITOR.
[2019-08-09 11:30] LABS: ANISOCYTOSIS 1+; EOSINOPHILS 3 % (0-7); HYPOCHROMASIA OCC; LYMPHOCYTES 13 % (15-50); MONOCYTES 8 % (2-11); NEUTROPHILS 76 % (40-80); PLATELET ESTIMATE NORMAL
--- NOTE | 2019-08-09 19:30 | NUR ---
RECEIVED BEDSIDE REPORT. PATIENT IS ALERT AND ORIENTED, RESTING COMFORTABLY IN BED. RESPIRATIONS ARE EVEN AND UNLABORED. NO S/S OF DISTRESS. NO C/O PAIN. CALL LIGHT WITHIN REACH. WILL CPOC.
--- NOTE | 2019-08-10 02:36 | NUR ---
PATIENT RESTING COMFORTABLY. RESPIRATIONS ARE EVEN AND UNLABORED. NO S/S OF DISTRESS. CALL LIGHT WITHIN REACH
[2019-08-10 05:35] LABS: BASOPHILS 0.3 % (0-2); EOSINOPHILS 3.1 % (0-7); HEMATOCRIT 32.4 % (36.0-48.0); HEMOGLOBIN 10.1 g/dL (12-16); IMMATURE GRANULOCYTES 0.3 % (0-5); LYMPHOCYTES 11.8 % (15-50); MCH 25.8 pg (26.0-34.0); MCHC 31.2 g/dL (31.0-37.0); MCV 82.9 fL (80.0-100.0); MEAN PLATELET VOLUME 9.1 fL (7.4-10.4); MONOCYTES 8.7 % (2-11); NEUTROPHILS 75.8 % (40-80); PLATELET COUNT 131 10x3/uL (130-400); RBC 3.91 10x6/uL (4.00-5.40); WBC 3.6 10x3/uL (4.8-10.8)
[2019-08-10 06:17] LABS: ANION GAP 12.8 mmol/L (8-16); CALCIUM 7.9 mg/dL (8.5-10.1); CARBON DIOXIDE 23.4 mmol/L (21.0-32.0); MAGNESIUM - SERUM 1.7 mg/dL (1.8-2.4); PHOSPHOROUS 2.3 mg/dL (2.5-4.9); POTASSIUM - SERUM 4.2 mmol/L (3.5-5.1)
[2019-08-10 06:20] LABS: CREATININE - SERUM 0.9 mg/dL (0.6-1.3)
[2019-08-10 08:27] VITALS: BP 106/62
--- NOTE | 2019-08-10 10:31 | NUR ---
PAIGE CALHOUN APN PAGED TO SEE ABOUT HEART MONITOR TO BE D/C.
--- NOTE | 2019-08-10 10:41 | NUR ---
PAIGE CALHOUN APN TO CALL BACK WITH DC ORDER FOR HEART MONITOR.
[2019-08-10 11:11] VITALS: BP 105/51
--- NOTE | 2019-08-10 14:45 | NUR ---
IV DCD. DC PLANS GIVEN. UNDERSTANDING VOICED. ESCORTED TO [facility] BY W/C.
--- NOTE | 2019-08-10 16:21 | MORECARE ---
CASE MANAGEMENT DISCHARGE SUMMARY PATIENT: KYLEE TREVINO UNIT: [id number] ADM DATE: 08/09/19 AGE: 59 : 60 SEX: F ROOM/BED: D.2119 AUTHOR: CARLENE DUQUE PHYSICIAN: REFERRING PHYSICIAN: JAMARI MARION MD DATE OF SERVICE: 08/10/19 Discharge Plan Patient Name: KYLEE TREVINO Facility: [facility]:[place] : 1960 Planned Disposition: Home Anticipated Discharge Date: 08/10/19 Discharge Date: 08/10/2019 Expected LOS: 1 Initial Reviewer: [email or web address] Initial Review Date: 08/10/2019 Generated: 08/10/19 5:21 pm Patient Name: KYLEE TREVINO Page 17513 at 1621 All edits/amendments must be made on the electronic document DICTATION DATE: 08/10/19 1621 ASSEMBLER RUBBER FOOTWEAR: DM 08/10/19 1621 RPT#: [id number] DC DATE:08/10/19 STATUS: DIS IN [facility] [address] [place] [address] END OF REPORT
--- NOTE | 2019-08-10 16:29 | MORECARE ---
CASE MANAGEMENT DISCHARGE SUMMARY PATIENT: KYLEE TREVINO UNIT: [id number] ADM DATE: 08/09/19 AGE: 59 : 60 SEX: F ROOM/BED: D.4232 AUTHOR: NETO,DOC PHYSICIAN: REFERRING PHYSICIAN: JAMARI MARION MD DATE OF SERVICE: 08/10/19 Discharge Plan Patient Name: KYLEE TREVINO Facility: [facility]:[place] : 1960 Planned Disposition: Home Anticipated Discharge Date: 08/10/19 Discharge Date: 08/10/2019 Expected LOS: 1 Initial Reviewer: [email or web address] Initial Review Date: 08/10/2019 Generated: 08/10/19 5:29 pm Comments DCP- Discharge Planning Updated by [email or web address]: Gabe Bustamante on 08/10/19 3:[address] Patient Name: KYLEE TREVINO Admission Status: ER Accout number: [id number] Admission Date: 08-09-2019 : 1960 Admission Diagnosis: Attending: JANAY Current LOS: 1 Anticipated DC Date: 08-10-2019 Planned Disposition: Home Primary Insurance: MEDICARE A & B Discharge Planning Comments: CM MET WITH PT IN ROOM TO DISCUSS DISCHARGE PLANNING AND NEEDS. PT REPORTS LIVING AT HOME INDEPENDENTLY WITH HER ADULT FAMILY MEMBERS; PT HAS PERSONAL CARE THROUGH [facility], MEDICAID PAYS A FAMILY MEMBER TO ASSIST WITH PT'S CARE 5 DAYS PER WEEK, 4 HOURS PER DAY. PT HAS BEDSIDE COMMMODE AND WALKER WITH NO MEDICAL EQUIPMENT PROVIDER PREFERENCE. CM DISCUSSED AVAILABILITY OF HOME HEALTH, REHAB SERVICES AND MEDICAL EQUIPMENT. PT DENIES DISCHARGE NEEDS, REPORTS NEEDING [facility] [employer] BUS CALLED WHO WILL PICK HER UP FOR DISCHARGE HOME. PT REPORTS HAVING NO OTHER WAY TO GET HOME. RN KRISTINA WORKMAN CALLED [employer] TRANSPORT, , ARRANGED WEB SEARCH EVALUATOR FOR TODAY FOR TRANSPORT HOME. CONFIRMATION # [id number]. Fuel Truck Driver: Gabe Bustamante DCPIA - Discharge Planning Initial Assessment Updated by [id number]: Gabe Bustamante on 08/10/19 4:21 pm * Is the patient Alert and Oriented? Yes * How many steps to enter\exit or inside your home? NONE * PCP [facility] * [facility] [place] * Preadmission Environment Home with Family * ADLs Partial Dependent * Partial ADLs (Assistance needed) Bathing * Equipment Bedside Commode Walker * Other Equipment NO MEDICAL EQUIPMENT PROVIDER PREFERENCE * List name and contact numbers for known caregivers / representatives who currently or will assist patient after discharge: JEFF WALLIS DTR, * Verbal permission to speak to the caregivers and representatives has been obtained from the patient. N/A * Community resources currently utilized None * Please name any agencies selected above. [facility] TRANSPORT NEEDED TO GET HOME TODAY. * Additional services required to return to the preadmission environment? No * Can the patient safely return to the preadmission environment? Yes * Has this patient been hospitalized within the prior 30 days at any hospital? No Last DP export: 08/10/19 3:21 pm Patient Name: KYLEE TREVINO Page [phone] at 1629 All edits/amendments must be made on the electronic document DICTATION DATE: 08/10/191628 AUTOMATIC MAINTAINER: BRIANNA 08/10/191628 RPT#: [id number] DC DATE:08/10/19 STATUS: DIS IN [facility] [address] [place] [address] END OF REPORT
== END 2019-08-10 14:45 | disposition home or self-care (01) | DRG 433 ==
LOC: D.ER 20:39 → D.M2 22:58 → OBSVTIME 22:58 → D.M2 08-09 17:23
PROVIDERS: Family Medicine; Specialist; ADMIT Family Medicine; ATTEND Family Medicine
PROC: 0W9G3ZZ Drainage of Peritoneal Cavity, Percutaneous Approach (ICD-10-PCS; principal; 2019-08-09 10:00)
DX: K74.60 Unspecified cirrhosis of liver (principal); R18.8 Other ascites; I50.30 Unspecified diastolic (congestive) heart failure; E11.9 Type 2 diabetes mellitus without complications; K21.9 Gastro-esophageal reflux disease without esophagitis

== ENCOUNTER 2020-03-05 12:46 | Emergency (ER) | payer MEDICARE ==
[~2020-03-05] VITALS: Ht 157.5 cm; Wt 61.4 kg
[2020-03-05 12:51] VITALS: Ht 157.5 cm; Wt 61.4 kg
[2020-03-05] MEDS ORDERED: BACLOFEN20 M1 PO (13:44)
[2020-03-05] MEDS ORDERED: VOLTAREN75 MG PO (13:44)
[2020-03-05] MEDS ORDERED: JANUMET 50-1,01 EAC1 PO (14:06)
[2020-03-05] MEDS ORDERED: ZOLOFT50 MG PO (14:07)
[2020-03-05] MEDS ORDERED: CORGARD20 MG PO (14:08)
[2020-03-05] MEDS ORDERED: PROTONIX40 MG PO (14:39)
[2020-03-05] MEDS ORDERED: KEPPRA1000 MG PO (14:42)
[2020-03-05 16:00] VITALS: BP 136/73
== END 2020-03-05 16:00 | disposition home or self-care (01) ==
LOC: D.ER 12:46
DX: S43.402A Unspecified sprain of left shoulder joint, initial encounter (principal); S49.92XA Unspecified injury of left shoulder and upper arm, initial encounter; W19.XXXA Unspecified fall, initial encounter; Y93.9 Activity, unspecified; Y92.9 Unspecified place or not applicable; E11.9 Type 2 diabetes mellitus without complications; I50.9 Heart failure, unspecified; K21.9 Gastro-esophageal reflux disease without esophagitis; Z79.84 Long term (current) use of oral hypoglycemic drugs

== ENCOUNTER → 2020-10-10 14:40 | Outpatient (CLI) | payer MEDICARE ==
[2020-05-23 09:43] VITALS: BMI 24.8
[~2020-10-10 14:40] MED LIST changes: +ASCORBIC ACID500 MG PO; +BACLOFEN20 M1 PO; +FER-IN-SOL DROP50 ML PO; +HYDROCODON-ACE1 EA10 PO; +JANUMET 50-1,01 EAC1 PO; +KEPPRA XR500 MG PO; +KEPPRA1000 MG PO; +VOLTAREN75 MG PO; +ZOLOFT50 MG PO
== END | disposition home or self-care (01) ==
LOC: D.MRI 10-04 15:00
PROVIDERS: ATTEND Clinical Nurse Specialist Family Health
DX: G54.0 Brachial plexus disorders (principal); M54.12 Radiculopathy, cervical region